=== PATIENT | male | born 1955 | race Caucasian/White ===

== ENCOUNTER 2023-01-07 02:22 | Emergency (ER) | payer OTHER, SELFPAY ==
[2023-01-07 02:41] VITALS: BP 152/84; PULSE 89; RESP 22; TEMP 36.3; O2SAT 93; BMI 21.5
--- NOTE | 2023-01-07 03:21 | ED_ITS ---
HPI - Male Genitourinary General Chief complaint: Urogenital Problems, Male Stated complaint: Wants catheter removed Time Seen by Provider: 01/07/23 02:53 History of Present Illness HPI Narrative: Pt is a 67 year old gentleman who drives over from [place] this morning stating that he would like to have his rankin catheter removed. Pt has a history of urinary obstruction for which he has self catheterized for years. Pt states that this catheter was put in several weeks ago at [facility] and that they refuse to remove it. He states that no urine is going into the bag and that he is emptying his bladder around the catheter. Pt has had no signso of infection such as dysuria, fevers, chills or hematuria. He states that he feels well, doesn't want any further evaluation and would very much like to have his catheter removed. VIKTORIYA. Related Data Allergies Allergy/AdvReac Type Severity Reaction Status Date / Time No Known Allergies Allergy Verified 01/07/23 02:52 Review of Systems Status of ROS: Reports: 10 or more systems reviewed and unremarkable except as noted in History and below and 6 or more systems reviewed and unremarkable exc ept as noted in History and below Exam Narrative: Exam Narrative: EXAM GENERAL: Patient appears comfortable and well. EYES: No scleral icterus. LYMPH: No supraclavicular or cervical lymphadenopathy. SKIN: Visible skin seen during exam normal or with benign process only. EXT: No dependent lower extremity pedal edema. HEART: Regular rate and rhythm with no murmurs, rubs, or gallops. LUNGS: Clear to auscultation bilaterally with no crackles or wheezes. ABD: Soft, non tender, non distended. PSYCH: Good eye contact, speech is not pressured. Const: Vital Signs, click to edit/add: Vital Signs - 24 hr 01/07/23 02:41 Temperature 97.3 F L Pulse Rate [Pulse Oximeter] 89 Respiratory Rate 22 Blood Pressure [Le ft Upper Arm] 152/84 H Pulse Oximetry 93 Oxygen Delivery Me thod Room Air Course Course Hospital Course: Pt seen and examined. Vital Signs Vital signs: Initial Vital Signs Temperature 97.3 F L 01/07/23 02:41 Temperature Source Temporal Artery Scan 01/07/23 02:41 Pulse Rate 89 01/07/23 02:41 Pulse Strength 3+ Normal 01/07/23 02:41 Respiratory Rate 22 01/07/23 02:41 Blood Pressure 152/84 H 01/07/23 02:41 Blood Pressure Mean 106 01/07/23 02:41 Blood Pressure Position Sitting 01/07/23 02:41 Pulse Oximetry 93 01/07/23 02:41 Oxygen Delivery Method 01/07/23 02:41 Vital Signs Temperature 97.3 F L 01/07/23 02:41 Pulse Rate 89 01/07/23 02:41 Respiratory Rate 22 01/07/23 02:41 Blood Pressure 152/84 H 01/07/23 02:41 Pulse Oximetry 93 01/07/23 02:41 Oxygen Delivery Method 01/07/23 02:41 Temperature 97.3 F L 01/07/23 02:41 Pulse Rate 89 01/07/23 02:41 Respiratory Rate 22 01/07/23 02:41 Blood Pressure 152/84 H 01/07/23 02:41 Pulse Oximetry 93 01/07/23 02:41 Oxygen Delivery Method 01/07/23 02:41 MDM - Male Genitourinary MDM Narrative Medical decision making narrative: Pt presents with urination around the outside of his rankin catheter. Pt is not interested in discussing his urinary history, home medications or chronic health conditions. He just wants his catheter out and understands the risk of doing so. I am hesitant to remove the catheter as we do not have access to previous records. However, the catheter is clearly not working as he is urinating around it. The catheter was removed and he refused a new catheter. He will follow up if problems develop and will follow up with his PCP this coming week as well. Differential Diagnosis Differential diagnosis: Likely urinary tract infection, urethritis, prostatitis, acute retention of urine and inguinal hernia Discharge Plan Discharge Clinical Impression: Obstruction of urinary tract Patient Disposition: Home, Self-Care Condition: Stable Instructions: Enlarged Prostate (BPH) (ED) Additional Instructions: Return if problems with bladder emptying develop Follow up with your doctor this coming week. Activity Level: No Restrictions Discharge Diet: Regular Stand Alone Forms: [employer] Info Instructions
--- NOTE | 2023-01-07 03:40 | ED.NURSE ---
Catheter removed without complication. Patient provided with new supplies for straight cathing at home. He states he has used the same kit since 2019.
== END 2023-01-07 03:48 | disposition home or self-care (01) ==
LOC: ED 03:47
PROVIDERS: Emergency Provider Internal Medicine; PCP Surgery
DX: T83.091A Other mechanical complication of indwelling urethral catheter, initial encounter (principal)
CPT/HCPCS: 99282; 99283

== ENCOUNTER 2023-11-21 02:39 | Emergency (ER) | payer OTHER, SELFPAY ==
[2023-11-21 02:46] VITALS: BP 134/84; PULSE 84; PULSE 98; RESP 22; TEMP 37; BMI 35.0
--- NOTE | 2023-11-21 03:03 | ED_ITS ---
HPI - Male Genitourinary General Date Seen: 11/21/23 Chief complaint: Urogenital Problems, Male Stated complaint: Bladder problems Time Seen by Provider: 11/21/23 02:41 Source: patient Mode of arrival: ambulatory Limitations: no limitations History of Present Illness HPI Narrative: Patient is a 68-year-old male presenting to the emergency department for difficulty urinating and blood in his urine. He states he has been dealing with this on and off for 5 years now. He states they found for possible cancer few years ago but he refused a biopsy so has never formally diagnosed. Since then he will have intermittent issues with blood in his urine and states he will get prescribed antibiotics in it will clear up. He has been self cathing over the past couple days. States he does this whenever the symptoms flare up. He last had do it 1 year ago. He states at that time he was supposed sick keep a Herrera and but pulled it out on its own because he did not know there was a balloon on the and. States he received a self cath kits from [facility]. States he has some mild suprapubic pain that only started after the repeated self catheterization. States he is having some issues the self cathing because they a clotting up with blood. Denies fevers, chills, chest pain, shortness of breath, lightheadedness, dizziness, weakness, numbness. States his only issue at this time is the blood clots in his urine. Related Data Previous Rx's Medication Instructions Recorded cefpodoxime 200 mg tablet 200 mg PO BID #28 tabs 11/21/23 Allergies Allergy/AdvReac Type Severity Reaction Status Date / Time No Known Allergies Allergy Verified 01/07/23 02:52 Review of Systems Status of ROS: Reports: 10 or more systems reviewed and unremarkable except as noted in History and below PFSH PFS Social History Smoking Status: Current every day smoker What tobacco products do you use: cigarettes Second hand tobacco smoke exposure: No How often do you have a drink containing alcohol: never How often do you have six or more drinks on one occasion: Never AUDIT-C Alcohol total score: 0 Non-prescribed substance use: denies use Exam Narrative: Exam Narrative: Const: Well-nourished, Well-developed, in no distress Eyes: PERRL, no conjunctival injection, and symmetrical lids HENT: Atraumatic external nose and ears. Moist mucous membranes. Neck: Symmetric, trachea midline, No thyromegaly. CVS: RRR, No murmurs or gallops. Peripheral pulses 2+ and equal in all extremities RESP: Unlabored respiratory effort. Clear to auscultation bilaterally. GI: Nontender/Nondistended, No rebound or guarding. MSK:Extremities w/o deformity, Normal Active ROM Skin: Warm, Dry. No rashes or lesions. Neuro: Normal Muscle tone, No focal neurological deficits. Psych: Awake, Alert, & Oriented x3. Appropriate mood and affect. Const: Vital Signs, click to edit/add: Vital Signs - 24 hr 11/21/23 02:46 11/21/23 03:45 Temperature 98.6 F Pulse Rate [Femora l] 84 Pulse Rate [Pulse Oximeter] 98 Respiratory Rate 22 20 Blood Pressure [Ri ght Upper Arm] 134/84 153/84 H Oxygen Delivery Me thod Room Air Room Air Course Vital Signs Vital signs: Initial Vital Signs Temperature 98.6 F 11/21/23 02:46 Temperature Source Temporal Artery Scan 11/21/23 02:46 Pulse Rate 98 11/21/23 02:46 Respiratory Rate 22 11/21/23 02:46 Blood Pressure 134/84 11/21/23 02:46 Blood Pressure Mean 100 11/21/23 02:46 Blood Pressure Position Sitting 11/21/23 02:46 Oxygen Delivery Method Room Air 11/21/23 02:46 Vital Signs Temperature 98.6 F 11/21/23 02:46 Pulse Rate 98 11/21/23 02:46 Respiratory Rate 22 11/21/23 02:46 Blood Pressure 134/84 11/21/23 02:46 Oxygen Delivery Method Room Air 11/21/23 02:46 Temperature 98.6 F 11/21/23 02:46 Pulse Rate 98 11/21/23 02:46 Respiratory Rate 20 11/21/23 03:45 Blood Pressure 153/84 H 11/21/23 03:45 Oxygen Delivery Method Room Air 11/21/23 03:45 Medications Administered Medications: Discontinued Medications Generic Name Dose Route Start Last Admin Trade Name Freq PRN Reason Stop Dose Admin Cefpodoxime Proxetil 200 mg 11/21/23 04:48 11/21/23 05:02 Cefpodoxime Proxetil 200 Mg Tablet PO 11/21/23 04:49 200 mg ONCE ONE Administration MDM - Male Genitourinary MDM Narrative Medical decision making narrative: Patient is a 68-year-old male presenting for blood clots in his urine. He does possibly have some type of bladder cancer but he never got the biopsy. We will cath him here to see how much blood in urine there is and to see if there is a UTI. Will check a CBC and BMP to look for any signs of infection or kidney dysfunction. Herrera was placed and blood did return. We did have to force saline through a few times to unclog it. Because still continued to appear to be a large amount of blood and CBI was ordered. This was done after his CT scan but were unable to get the CBI catheter in. CT scan showed acute cystitis which is consistent with ease urinalysis. Some incidental kidney and pulmonary lesions were seen and he was informed to follow-up with them. CBC and BMP showed no concerning findings. Coags were non concerning. At this time patient is otherwise doing well he states this has happened to him several times in the past and antibiotics always clear up the bleeding. He is hemodynamically stable and I do believe he needs hospitalization at this time. Spoke to him about placing a Herrera catheter again so that he can have better drainage but he does not want to go home with 1. He states he will self catheterization as needed and take the antibiotics as directed. States he will return if symptoms worsen. At this point patient will be discharged home. Lab Data Labs: Lab Results 11/21/23 Range/Units 03:30 WBC 10.43 (4.50-11.00) K/uL RBC 4.75 (4.30-5.90) m/uL Hgb 14.2 (13.5-17.5) gm/dL Hct 42.1 (37.0-53.0) % MCV 89 (80-100) fL MCH 30 (26-34) pg MCHC 34 (32-36) gm/dL RDW Coeff of Syed 13.0 (11.5-15.5) % Plt Count 212 (140-440) K/uL Neut % (Auto) 52.4 (42.0-72.0) % Lymph % (Auto) 35.5 (20-44) % [place] % (Auto) 9.9 (0.0-11.0) % Eos % (Auto) 1.7 (0.0-7.0) % Baso % (Auto) 0.3 (0.0-3.0) % Neut # (Auto) 5.47 (1.7-7.0) K/uL Lymph # (Auto) 3.70 H (0.90-2.90) K/uL O[place]ley # (Auto) 1.00 H (0.00-0.90) K/UL Eos # (Auto) 0.18 (0.00-0.50) K/uL Baso # (Auto) 0.03 (0.00-0.30) K/uL Abs Immat Gran (auto) 0.02 (0.00-0.30) K/uL Imm/Tot Granulo (auto) 0.2 % INR 0.94 (0.91-1.10) APTT 34 H (23-33) Seconds Sodium 139 (135-149) mmol/L Potassium 3.6 (3.6-5.1) mmol/L Chloride 108 (96-114) mmol/L Carbon Dioxide 21 (20-32) mmol/L Anion Gap 10 (7-15) mEq/L BUN 17 (7-30) mg/dL Creatinine 0.8 (0.5-1.5) mg/dL Estimated Creat Clear 66.50 Estimated GFR 95 ml/min Glucose 187 H (60-115) mg/dL Calcium 8.6 (8.4-10.6) mg/dL Urine Color Red A (Yellow) Urine Appearance Cloudy A (Clear) Urine pH >= 9.0 H (5.0-8.5) Ur Specific [place] <= 1.005 (1.000-1.030) Urine Protein 3+ A (Negative) Urine Glucose (UA) Trace A (Negative) Urine Ketones 3+ A (Negative) Urine Blood 3+ A (Negative) Urine Nitrite Negative (Negative) Urine Bilirubin 3+ A (Negative) Urine Urobilinogen >=8.0 A (0.2-1.0) Ur Leukocyte Esterase 3+ A (Negative) Urine RBC >100 A (0-2) Urine WBC 5-10 A (0-5) Ur Squamous Epith Cells Few (None-Few) Urine Bacteria Moderate A (None) Imaging Data CT scan abdomen and pelvis: Radiologist's impression: 1. Indeterminate heterogenous left midpole renal lesion, measuring up to 2.2 cm. Recommend nonemergent contrast-enhanced CT/MRI renal mass protocol to further evaluate. 2. Bladder is decompressed with Herrera catheter with the bladder wall demonstrating wall thickening and adjacent inflammation. Findings concerning for acute cystitis. Recommend correlation with urinalysis. 3. Colonic diverticulosis without evidence of acute diverticulitis. 4. Hepatic steatosis 5. Right middle lobe and left lower lobe subpleural pulmonary nodules, measuring approximately 5 mm. The left lower lobe pulmonary nodule is incompletely included in the field of view. Recommend follow-up per Fleischner society guidelines. Discharge Plan Discharge Clinical Impression: Acute UTI Hematuria Qualifiers: Hematuria type: gross Qualified Code(s): R31.0 - Gross hematuria Patient Disposition: Home, Self-Care Condition: Stable Instructions: Urinary Tract Infection in Men (ED) Additional Instructions: I recommend follow-up with a urologist within next week or 2. At a minimum follow-up with your primary care provider. You can continue to self cath the home as needed. Return to the emergency department for new or worsening symptoms. Take antibiotics as directed Incidental kidney and lung lesions were seen on the CT scan. It is recommended he follow-up your primary care provider for these in a non emergent fashion. Prescriptions: New cefpodoxime 200 mg tablet 200 mg PO BID Qty: 28 0RF Rx Instructions: must administer with a meal/food Follow Up/Referrals: Daniel Jc MD [Primary Care Provider] - Stand Alone Forms: [employer] Info Instructions
--- NOTE | 2023-11-21 03:24 | CRLHL7_ITS ---
For Patients: As a result of the Century Cures Act, medical imaging exams and procedure reports are released immediately into your electronic medical record. You may view this report before your referring provider. If you have questions, please contact your health care provider. INDICATION: gross hematuria TECHNIQUE: CT abdomen and pelvis with 103 cc Isovue 370 IV contrast. COMPARISON: None. FINDINGS: Hepatic steatosis. Gallbladder and biliary tree are normal. The spleen, adrenal glands and pancreas are within normal limits. Heterogenous left midpole renal lesion, measuring 1.9 x 2.2 x 1.7 cm. Left upper pole exophytic renal cyst measuring 1.7 cm. No hydronephrosis. Bladder is decompressed with Herrera catheter with the bladder wall demonstrating wall thickening and adjacent inflammation. No evidence of bowel obstruction. Colonic diverticulosis without evidence of acute diverticulitis. Unremarkable appendix. No significant free fluid and no free air. Abdominal aorta normal caliber with moderate aortoiliac atherosclerosis. Small fat containing umbilical hernia. Pelvic organs are unremarkable. Solid right middle lobe pulmonary nodule, measuring 5 mm. Additional partially included in the field of view is a 5 mm left lung base pulmonary nodule. There is also calcified granulomata left lung base. Chronic bilateral L5 pars defects. Mild multilevel degenerative spondylosis. IMPRESSION: 1. Indeterminate heterogenous left midpole renal lesion, measuring up to 2.2 cm. Recommend nonemergent contrast-enhanced CT/MRI renal mass protocol to further evaluate. 2. Bladder is decompressed with Herrera catheter with the bladder wall demonstrating wall thickening and adjacent inflammation. Findings concerning for acute cystitis. Recommend correlation with urinalysis. 3. Colonic diverticulosis without evidence of acute diverticulitis. 4. Hepatic steatosis 5. Right middle lobe and left lower lobe subpleural pulmonary nodules, measuring approximately 5 mm. The left lower lobe pulmonary nodule is incompletely included in the field of view. Recommend follow-up per Fleischner society guidelines. SOCIETY GUIDELINES - SOLID NODULES: SINGLE LOW RISK - nodule less than 6 mm: No routine follow-up. - nodule 6-8 mm: CT at 6-12 months, then consider CT at 18-24 months. - nodule greater than 8 mm: Consider CT at 3 months, PET/CT or tissue sampling. SINGLE HIGH RISK - nodule less than 6 mm: Optional CT at 12 months. - nodule 6-8 mm: CT at 6-12 months, then CT at 18-24 months. - nodule greater than 8 mm: Consider CT at 3 months, PET/CT or tissue sampling. MULTIPLE LOW RISK - nodule less than 6 mm: No routine follow-up. - nodule 6-8 mm: CT at 3-6 months, then consider CT at 18-24 months. - nodule greater than 8 mm: CT at 3-6 months, then consider CT at 18-24 months. MULTIPLE HIGH RISK - nodule less than 6 mm: Optional CT at 12 months. - nodule 6-8 mm: CT at 3-6 months, then at 18-24 months. - nodule greater than 8 mm: CT at 3-6 months, then at 18-24 months. Please note that all CT scans at this facility use dose modulation, iterative reconstruction, and/or weight-based dosing when appropriate to reduce radiation dose to as low as reasonably achievable. Dictated by Linden Erickson MD @ 11/21/2023 4:41:44 AM (Electronically Signed)
[2023-11-21 03:37] LABS: Basophils Absolute Auto 0.03 K/uL (0.00-0.30); Basophils Percent Auto 0.3 % (0.0-3.0); Eosinophils Absolute Auto 0.18 K/uL (0.00-0.50); Eosinophils Percent Auto 1.7 % (0.0-7.0); Hematocrit 42.1 % (37.0-53.0); Hemoglobin* 14.2 gm/dL (13.5-17.5); Immature Granulocytes Abs Auto 0.02 K/uL (0.00-0.30); Immature Granulocytes Pct Auto 0.2 %; Lymphocytes Percent Auto 35.5 % (20-44); Mean Corpuscular HGB Conc 34 gm/dL (32-36); Mean Corpuscular Hemoglobin 30 pg (26-34); Mean Corpuscular Volume 89 fL (80-100); Monocytes Percent Auto 9.9 % (0.0-11.0); Neutrophils Absolute Auto 5.47 K/uL (1.7-7.0); Neutrophils Percent Auto 52.4 % (42.0-72.0); Platelet Count* 212 K/uL (140-440); Red Blood Count 4.75 m/uL (4.30-5.90); White Blood Count* 10.43 K/uL (4.50-11.00)
[2023-11-21 03:39] LABS: Slide Review Reflex No
--- NOTE | 2023-11-21 03:42 | PC.NURSE ---
0330 urojet used prior to insertion of coude cath-met resistance at prostate but without much diff. 100 cc of sang into bag but large amounts of pink tinged urine spirting out end of penis. at BS to see. IV started and labs sent as ordered. Pt states he has been self cathing for a couple days now. Usually they give me an anitbiotic and within minutes I feel a lot better.
[2023-11-21 03:45] VITALS: BP 153/84; RESP 20
[2023-11-21 03:45] LABS: Appearance Urine Cloudy (Clear); Bilirubin Urine 3+ (Negative); Blood Urine 3+ (Negative); Color Urine Red (Yellow); Glucose Urine Trace (Negative); Ketones Urine 3+ (Negative); Leukocyte Esterase Urine 3+ (Negative); Nitrite Urine Negative (Negative); Protein Urine 3+ (Negative); Specific Gravity Urine <= 1.005 (1.000-1.030); Urobilinogen Urine >=8.0 (0.2-1.0)
[2023-11-21 03:48] LABS: Bacteria Urine Moderate; RBC Urine >100 (0-2); Squamous Epithelial Cell Urine Few (None-Few); pH Urine >= 9.0 (5.0-8.5)
[2023-11-21 03:50] LABS: Chloride* 108 mmol/L (96-114); Sodium* 139 mmol/L (135-149)
[2023-11-21 03:51] LABS: Potassium* 3.6 mmol/L (3.6-5.1)
[2023-11-21 03:53] LABS: Creatinine* 0.8 mg/dL (0.5-1.5); Estimated Glomerular Filt Rate 95 ml/min; INR 0.94 (0.91-1.10); Prothrombin Time 13.1 Seconds
[2023-11-21 03:54] LABS: Anion Gap 10 mEq/L (7-15); Blood Urea Nitrogen* 17 mg/dL (7-30); Calcium* 8.6 mg/dL (8.4-10.6); Carbon Dioxide* 21 mmol/L (20-32); Glucose* 187 mg/dL (60-115); Partial Thromboplastin Time* 34 Seconds (23-33)
--- NOTE | 2023-11-21 04:22 | PC.NURSE ---
Return from CT-moved to room 5 secondary to a larger room-plan for CBI
--- NOTE | 2023-11-21 04:41 | PC.NURSE ---
Previous catheter D/C with an atempt to place a 3way CBI rankin. Unsuccessfully. Pt statoin
--- NOTE | 2023-11-21 04:43 | PC.NURSE ---
at when attempted to palce a
--- NOTE | 2023-11-21 04:44 | PC.NURSE ---
at during rankin attempt for CBI attempt. Unsuccessful.
[2023-11-21] MEDS: CEFPODOXIME PROXETIL 200 MG TABLET PO (05:02)
--- OUTSIDE RECORDS SUMMARY | 2023-11-21 05:18 | XMS_ITS | Data Portability ---
Author Name Unknown Address [address] [place] [address] Phone [phone] Organization [facility] Address [address] [facility] [place] [address] Assessment Encounter Date Assessment Date Assessment LastModified by Organization Details LastModified Time 07/01/2020 07/01/2020 Multiple chronic conditions that are stable or improving. Recommend RTC in 3-6 months. Meds refilled. Not available 07/01/2020 11:02:39 12/23/2020 12/23/2020 Advised patient that, due to his insurance, I recommend that he follow up with [facility] internal medicine for his primary care. They have been trying to reach him (per [facility] records) to do a follow up. We made a deal that I will refill his meds x 3 months if he does a follow up with them. He plans to call to schedule today. I recommended repeat labs. We discussed the importance of diabetes control on maintaining his health. Patient plans to work on weight loss. Plans to go camping in [place] soon. Advised patient that, though he does not want to pursue treatment for probably cancer diagnosis at this point, he can always change his mind based on how he is feeling and the information that he receives. Patient feels that he has received all pertinent information and is choosing not to pursue treatment. Not available 12/23/2020 10:41:33 Plan of Treatment Reminders Order Date Submit Date Provider Last Modified By Organization Details Last Modified Time Details Appointments None recorded. Lab None recorded. Referral care coordinati on referral 2019 020 [email or web address] Not available 0 15:24:08 Procedures None recorded. Surgeries None recorded. Imaging None recorded. Medication Orders omeprazole 20 mg capsule,de layed release [facility] [place], [address], [place], [address], 15:17:56 glipizide ER 5 mg tablet, extended release 24 hr 2020 [facility] [place], [address], [place], [address], 10:37:11 losartan 50 mg tablet 2020 [facility] [place], [address], [place], [address], 10:35:25 metoprolol succinate ER 100 mg tablet,ext ended release 24 hr 2020 [facility] [place], [address], [place], [address], 15:17:56 atorvastat in 40 mg tablet 2020 [facility] [place], [address], [place], [address], 15:07:00 doxazosin 4 mg tablet 2020 [facility] [place], [address], [place], [address], 15:11:04 atorvastat in 40 mg tablet 2019 [facility] [place], [address], [place], [address], 0 10:40:47 Fish Oil 300 mg-1,000 mg capsule 2019 [facility] [place], [address], [place], [address], 0 10:40:49 omeprazole 20 mg capsule,de layed release 2019 [facility] [place], [address], [place], [address], 0 10:40:50 losartan 50 mg tablet 2019 [facility] [place], [address], [place], [address], 0 10:40:47 metoprolol succinate ER 100 mg tablet,ext ended release 24 hr 2019 [facility] [place], [address], [place], [address], 0 10:40:50 glipizide ER 5 mg tablet, extended release 24 hr 2019 INTERFACE [facility] [place], [address], [place], [address], 0 10:40:50 doxazosin 2 mg tablet 2019 INTERFACE [facility] [place], [address], [place], [address], 0 10:40:51 Patient TargetsNo targets recorded. Patient InstructionsNo instructions recorded. Reason for Referral Care Coordination Referral f or Essential hypertension Home BP monitor and CHW follow up if possible/if patient is ok with it. Referring Physician: [facility]arez [facility], Encounter Date: 07/01/2020 Care Coordination Referral f or [place] hematuria Refer to [facility] Dr. Mendoza Referring Physician: M[facility], Encounter Date: 08/26/2020 Internal Medicine Referral f or [place] hematuria Internal medicine referral due to multiple chronic uncontrolled conditions Gross hematuria with clots x 10 days Referring Physician: Makenzie Juarez, Family Medicine, Encounter Date: 08/26/2020 Results Created Date Observation Date Name Description Value Unit Range Abnormal Flag LastModifiedBy Organization Detail LastModifiedTime 09/07/2020 HbA1c (hemo globi n A1c), blood HGB A1C 11.7 Not Available [facility] [address] [place] [address] [place], [address], 06/19/2020 10:48:05 06/17/20 20 06/17/2020 CBC w/ diff WBC 7.7 Not Available [facility] [address] [place], [address], 06/19/2020 10:48:05 06/17/20 20 06/17/2020 CBC w/ diff HGB 15.5 Not Available [facility] [address] [place] [address] [place], [address], 06/19/2020 10:48:05 06/17/20 20 06/17/2020 CBC w/ diff platelet count 142 Not Available [place] [facility] [address] [place] [address] [place], [address], 06/19/2020 10:48:05 06/17/20 20 06/17/2020 CMP, serum or plasm a creatinine 0.94 Not Available [facility] [address] [place] [address] [place], [address], 06/19/2020 10:48:05 06/17/20 20 06/17/2020 CMP, serum or plasm a ALT 37 Not Available [facility] [address] [place] [address] [place], [address], 06/19/2020 10:48:05 06/17/20 20 06/17/2020 micro album in, urine microalbumin 64.9 Not Available [facility] [address] [place] [address] [place], [address], 06/19/2020 10:48:05 Result Notes None recorded. Medical Equipment None Reported. Allergies No known drug allergies Medications Name Sig Start Date Stop Date Status Note LastModified by Organization Details LastModified Time losartan 50 mg tablet active Not Available Not Available No t Available atorvastati n 40 mg tablet active Not Available Not Available Not Available metoprolol succinate ER 100 mg tablet,exte nded release 24 hr active Not Available Not Available Not Available glipizide ER 5 mg tablet, extended release 24 hr Take 1 tablet(s) every day by oral route. active Not Available Not Available No t Available doxazosin 8 mg tablet 12/23 completed Not Available Not Available Not Available glipizide ER 2.5 mg tablet, extended release 24 hr take 1 tablet by oral route every day with breakfast 11/27 completed Not Available Not Available Not Available omeprazole 20 mg capsule,del ayed release active Not Available Not Available Not Available doxazosin 4 mg tablet Take 1 tablet(s) every day by oral route. active Not Available Not Available No t Available clotrimazol e 1 % topical cream apply by topical route 2 times every day to the affected and surroundi ng areas of skin in the morning and evening 02/18 completed Not Available Not Available Not Available doxazosin 2 mg tablet take 1 tablet by oral route every day 11/20 completed Not Available Not Available Not Available Ciprodex 0.3 %-0.1 % ear drops,suspe nsion SHAKE LIQUID AND INSTILL 4 DROPS IN LEFT EAR TWICE DAILY active Not Available Not Available No t Available Fish Oil 300 mg-1,000 mg capsule Take 1 capsule(s ) every day by oral route. active Not Available Not Available No t Available Fish Oil 300 mg-1,000 mg capsule,del ayed release active Not Available Not Available Not Available Fish Oil 1,000 mg (120 mg-180 mg) capsule 2 capsules daily 11/27 completed Not Available Not Available Not Available Fluad Quad (6 5yr up)(PF) 60 mcg (15 mcg x 4)/0.5mL IM syringe ADM 0.5ML IM UTD active Not Available Not Available No t Available Moderna COVID-19 (12 yr up) Vaccine (PF) 100 mcg/0.5 mL IM susp (EUA) ADMINISTE R 0.5ML IN THE MUSCLE DIRECTED active Not Available Not Available No t Available Vitals Date Recorded Systolic blood pressure Diastolic blood pressure Provider Name and Address Organization Details Last Updated DateTime 11/20/2019 138 mm[Hg] 85 mm[Hg] Not Available [facility] 0 06/01/2020 12:58:07 Social History None recorded. Functional Status None recorded. Mental Status None recorded. Family History Nothing Reported. Medical History No medical history recorded. Past Encounters Encounter ID Performer Location Encounter Start Date Encounter Closed Date Diagnosis/Indication [id number] Makenzie Juarez NP [facility] [address] [place] [id number] 06/17/2020 11:50:23 06/17/2020 16:05:28 [id number] [facility] [address] [place] [id number] 07/01/2020 09:54:42 07/01/2020 11:09:11 Essential hypertension Type 2 diabetes mellitus without complication Benign prostatic hyperplasia Dyslipidemia Gastroesophageal reflux disease [id number] Makenzie Juraez NP [facility] [address] [place] [phone] 12/23/2020 09:55:46 12/23/2020 10:54:38 Essential hypertension Type 2 diabetes mellitus without complication Benign prostatic hyperplasia Hyperlipidemia Gastroesophageal reflux disease Health Concerns Section Related Observation LastModified by Organization Detai ls LastModified Time None Recorded Concern Status LastModified by Organization Details LastModified Time None Recorded Advance Directives Directive None Recorded Payers Encounter Date Sequence Insurance Name Policy Number Policy Rivera Covered Member ID Rivera Member ID Guarantor Name 12/23/2020 1 [employer] - DOS PRIOR TO 2021 (MEDICAID REPLACEMENT - HMO) RICHAR Velasquez [id number] Norris Velasquez 07/01/2020 1 [employer] - DOS PRIOR TO 2021 (MEDICAID REPLACEMENT - HMO) RICHAR Velasquez [id number] Norris Velasquez 06/17/2020 1 [employer] - DOS PRIOR TO 2021 (MEDICAID REPLACEMENT - HMO) [facility] Velasquez [id number] Norris Velasquez Notes Date Note Type Note Provider Name and Address Organization Details Recorded Time 07/01/2020 text/html HPI Notes: 65 y. o. M with hx of DM2, HLD, BPH, HTN, and GERD, evaluated via [facility] for follow up. Labs done 06/17/20. 1. DM2: A1c 11.7 (down from 12.7% 11/2019), reports urinary frequency that is stable x many years (likely due to BPH), denies vision changes, neuropathy, hematuria. Microalbumin elevated, but not surprisingly. Creatinine/eGFR/BUN normal. Patient has cut down significantly on sugar. Reports that nerve pain in his foot has gone away. Taking Glipizide as directed. Recently seen at [facility] for glasses and eye exam. 2. HTN: Does not have home BP cuff. Has taken Losartan 100mg and Metoprolol succinate 100mg ER for a long time now. Advised patient to have BP checked in pharmacy. Will refer for CHW visit and home BP cuff if possible. Denies dizziness, headache, vision changes. 3. Dyslipidemia: lipid panel much improved. Takes Atorvastatin and fish oil as prescribed. Has cut down on sugar consumption. 4. BPH: Reports that he has experimented with taking Doxazosin 2mg twice daily and this allows him to sleep through the night without getting up to urinate. Would like to keep doing this. Denies any acute change in urinary frequency, dysuria, hematuria. Makenzie Juarez, [employer] [address] [place], [address], [facility] 07/01/2020 11:11:59 12/23/2020 text/html HPI Notes: 65 y. o. M with hx of uncontrolled DM2, HLD, BPH, HTN, and GERD, evaluated via [facility] Last seen 08/2020, at which time he was referred to urology due to gross hematuria with clots and to [facility] internal medicine due to the complexity of his case and because he has insurance. 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 They have been trying to reach out to him for DM2 follow up. Labs reviewed from 09/2020 - BMP, CBC, and COVID-19 test all normal except for glucose of 350 Today, patient reports feeling great. Denies any symptoms today. He does not want to do anything about his prostate cancer (not confirmed by biopsy). Patient declining any intervention. Hesitant to go back to [facility] internal medicine because he feels pressured to have surgery. He reports that he is eating better, not losing weight, but plans to. Makenzie Juarez, [employer] [address] [place], [address], [facility] 12/23/2020 10:44:52
--- NOTE | 2023-11-21 05:53 | PC.NURSE ---
0530 pt received oral antibiotic before D/C. Pt able to call for ride home. Pads and chux provided. Ambulate out wit stable gait.
--- NOTE | 2023-11-21 14:41 | ED.NURSE ---
[facility] in [place] called to state that patients insurance does not cover cefpodoxime and requested a different antibiotic to be prescribe. Reviewed patients case with Dr. Rivera. He felt patient did not need to be treated with an anitbiotic at this time and we can wait for culture results. Pharmacy was notified of this. Attempted to call patient with this information as well but he did not answer and a message was left.
== END 2023-11-21 06:34 | disposition home or self-care (01) ==
LOC: ED 05:16
PROVIDERS: Emergency Provider Student in an Organized Health Care Education/Training Program; PCP Surgery
DX: N39.0 Urinary tract infection, site not specified (principal); R31.0 Gross hematuria
CPT/HCPCS: 36415; 74177; 80048; 81001; 85025; 85610; 85730; 87086; 99283; 99284; A9270; Q9967

== ENCOUNTER 2024-11-22 19:06 | Emergency (ER) | payer OTHER, SELFPAY ==
--- OUTSIDE RECORDS SUMMARY | 2024-11-22 19:08 | XMS_ITS | Clinical Summary ---
Author Organization [facility] Address [place], [place] [address] Care Team Providers Care Mold Sander Name Role Phone Daniel Jc MD Primary Care Provider [phone] [facility], [place] Unavailable Allergies Active Allergy Reactions Criticality Noted Date Comments Codeine Other - Describe In Comment Field Comment: GI problems, Description: Metformin GI Upset 04/30/2021 Unlisted Allergen (Include Detail In Comments) GI Upset 04/16/2010 Medications blood sugar diagnostic (Contour Next Test Strips) stripIndications: Type 2 diabetes mellitus with diabetic polyneuropathy, without long-term current use of insulin (HC) USE TO TEST 4 TIMES DAILY 400 Each 3 022 Active aspirin chewable 81 mg chewable tabletIndications :ST elevation myocardial infarction (STEMI), unspecified artery (HC) Take 1 Tablet (81 mg) by mouth or nasogastric tube once daily. 90 Tablet 023 Active amLODIPine (NORVASC) 5 mg tabletIndications :Essential hypertension Take 1 Tablet (5 mg) by mouth once daily. 90 Tablet 3 024 Active gabapentin (NEURONTIN) 300 mg capsuleIndication s:Type 2 diabetes mellitus with diabetic polyneuropathy, without long-term current use of insulin (HC) Take 2 Capsules (600 mg) by mouth at bedtime. 180 Capsule 3 024 Active glipiZIDE extended-release (GLUCOTROL XL) 5 mg Extended-Release tabletIndications :Type 2 diabetes mellitus with diabetic polyneuropathy, without long-term current use of insulin (HC) Take 1 Tablet (5 mg) by mouth once daily before a meal. 90 Tablet 3 03/25/2 024 Active losartan (COZAAR) 100 mg tabletIndications :HTN (hypertension) Take 1 Tablet (100 mg) by mouth once daily. 90 Tablet Active Insulin [place], Disposable, (Pen Needle) 32 gauge x /32Indications: Type 2 diabetes mellitus with diabetic polyneuropathy, without long-term current use of insulin (HC) As directed. Remove the 2 covers on the insulin pen needle before administering insulin dose. 100 Each Active metoprolol succinate (TOPROL XL) 100 mg Sustained-Release tabletIndications :HTN (hypertension) Take 1 Tablet (100 mg) by mouth once daily. 90 Tablet Active omeprazole (PRILOSEC) 20 mg Delayed-Release capsuleIndication s:Chronic GERD Take 1 Capsule (20 mg) by mouth once daily before a meal. 90 Capsule Active rosuvastatin (CRESTOR) 40 mg tabletIndications :Hyperlipidemia, unspecified hyperlipidemia type Take 1 Tablet (40 mg) by mouth at bedtime. 90 Tablet Active tamsulosin (FLOMAX) 0.4 mg capsuleIndication s:Urinary retention Take 2 Capsules (0.8 mg) by mouth once daily after a meal. 180 Capsule Active insulin glargine, U-100, (Lantus Solostar U-100 Insulin) 100 unit/mL (3 mL) penIndications:Ty pe 2 diabetes mellitus with diabetic polyneuropathy, without long-term current use of insulin (HC) Inject 52 units subcutaneous before bedtime. 45 mL 2 Active triamcinolone (ARISTOCORT; KENALOG) 0.1 % creamIndications: Inverse psoriasis APPLY TOPICALLY TO AFFECTED AREA(S) TWO TIMES DAILY. USE TWICE DAILY ON AFFECTED AREA FOR UP TO 2 WEEKS STRAIGHT, THEN STOP 80 g 1 025 Active triamcinolone (ARISTOCORT; KENALOG) 0.1 % creamIndications: Inverse psoriasis APPLY TOPICALLY TO AFFECTED AREA(S) TWO TIMES DAILY. USE TWICE DAILY ON AFFECTED AREA FOR UP TO 2 WEEKS STRAIGHT, THEN STOP 80 g 1 024 2024 Discontinued Active Problems Problem Noted Date Diagnosed Date STEMI (ST elevation myocardial infarction) 02/06 Type 2 diabetes mellitus 02/06/2023 Malignant neoplasm of urinary bladder 03/29/2021 Gastroesophageal reflux disease without esophagi tis 06/05/2015 Chronic pain 06/05/2015 Unspecified essential hypertension 02/25/2011 Impotence of organic origin 12/28/2010 Hyperlipidemia BPH (benign prostatic hyperplasia) Resolved Problems Problem Noted Date Diagnosed Date Resolved Date Hematuria 01/05/2023 02/06/2023 UTI (urinary tract infection) 01/05/2023 02/06/2023 Encounters Date Type Department Care Team Description 11/15/2024 Refill [facility] [address] [place] [address] Daniel Jc MD Refill Request (Triamcinolone) 11/04/2024 Telephone [facility] [address] [place] [address] Daniel Jc MD Appointment 09/19/2024 Nurse Triage [facility] [address] [place] [address] Daniel Jc MD Derm Problem from Last 3 Months Immunizations Name Administration Dates Next Due Anthrax Vaccine 07/27/2007 COVID-19 VACCINE SPIKEVAX (M ODERNA 50MCG/0.5ML) 12YO+ PFS 08/24/2023 COVID-19 vaccine (Moderna 100mcg/0.5mL) PF, MDV 10/14/2021,12/30/2020,12/30/2020,2020,12/02/2020 COVID-19 vaccine (Moderna 50mcg/0.5mL) 12YO+ BIVALENT PF, MDV 09/08/2022 HIB-HepB (Comvax) 11/21/2008 Influenza, IIV3 (Age >=3 years) 09/28/2007 Influenza, IIV4 08/24/2023,10/22/2015 Influenza, Inactivated AIIV4 (Age 65+ Years) Preserv Free 07/29/2021,08/10/2020 Pneumococcal Poly,23-Valent (Pneumovax) 03/29/2021 Tdap 06/06/2015,07/27/2007 Family History Medical History Relation Name Comments Cancer Brother 1 lung Drug Abuse Brother 1 Thyroid Disease Father Hypertension Mother Cancer Sister 1 Lung Relation Name Status Comments Brother 1 (Age 60) Heroin OD Brother 2 Alive Brother 3 Alive Daughter 1 Alive Daughter 2 Alive Father (Age 58) Maternal Grandfather Maternal Grandmother Mother Alive Paternal Grandfather Paternal Grandmother Sister 1 Alive Sister 2 Alive Son Alive Social History Tobacco Use Types Packs/Day Years Used Date Smoking Tobacco: Every Day Cigarettes Last attempted to quit: 04/27/2016 Smokeless Tobacco: Never Tobacco Cessation:Ready to Q uit: No; Counseling Given: Yes Comments:Smokes 4-5/day Alcohol Use Standard Drinks/Week Comments No 0 (1 standard drink = 0.6 oz pur e alcohol) [facility] Utilities Answer Date Recorded Do you have trouble paying f or utilities (for example, heat, electricity, water, phone)? Yes 02/05/2024 PHQ-2 Answer Date Recorded PHQ-2 TOTAL SCORE 0 02/05/2024 Social Connections Answer Date Recorded Do you often feel lonely or isolated from those around you? 0 02/05/2024 Financial Resource Strain Answer Date R ecorded Difficulty of Paying Living Expenses 2 02/05/2024 Difficulty of Paying Living Expenses 1 02/05/2024 Food Insecurity Answer Date Recorded Do you worry your food will run out before you are able to buy more? 1 02/05/2024 Transportation Needs Answer Date Record ed Does lack of transportation keep you from medica l appointments? 2 02/05/2024 Does lack of transportation keep you from work, meetings or getting things that you need? 2 02/05/2024 Housing Stability Answer Date Recorded What is your housing situation today? 1 02/05/2024 Sex and Gender Information Value Date Recorded Sex Assigned at Not on file Legal Sex Male 5:51 PM [employer] Gender Identity Not on file Sexual Orientation Not on file Obstetrics History Last Filed Vital Signs Vital Sign Reading Time Taken Comments Blood Pressure 137/80 02/05/2024 2:55 PM CDT Pulse 63 02/05/2024 2:55 PM CDT Temperature 36.3 C (97.4 F) 02/28/2023 12:57 PM CDT Respiratory Rate 22 04/06/2023 12:5 7 PM CDT Oxygen Saturation 99% 02/05/2024 2:55 PM CDT Inhaled Oxygen Concentration - - Weight 101.8 kg (224 lb 6.4 oz) 02/05/2024 2:55 PM CDT Height 170.2 cm (5' 7) 02/06/2023 5:12 PM CDT Body Mass Index 35.15 02/06/2023 5:12 PM CDT Plan of Treatment Health Maintenance Due Date Last Done Comments Colonoscopy through age 75 1998 Zoster (shingles) series for age 50+ (1 of 2) 2003 RSV vaccine for adults or (1 - Risk 60-74 years 1-dose series) 2013 Pneumococcal series for age 50+ (2 of 2 - PCV) 03/29/2022 03/29/2021 BMI (ht and wt on same day) for age 18+ 04/30/2022 04/30/2021, 10/07/2020, 05/02/2016, Additional history exists COVID-19 vaccine series ( season) 2024 08/24/2023, 09/08/2022, 10/14/2021, Additional history exists Influenza for age 65+ 07/14/2024 08/24/2023 , 07/29/2021, 08/10/2020, Additional history exists Depression screening for age 12+ 02/04/2025 02/05/2024, 02/05/2024, 02/05/2024, Additional history exists Tetanus booster 06/06/2025 06/06/2015, 07/27/2007 Lipids for age 45-75 02/04/2029 02/05/2024, 02/06/2023, 04/18/2022, Additional history exists Tdap Completed 06/06/2015, 07/27/2007 Hepatitis C screening for ag e 18-79 Completed 03/29/2021 AAA screening age 65-74 Completed 01/05/2023, 08/16 Procedures Procedure Name Priority Date/Time Associated Diagnosis Comments LIPID PANEL Routine 02/05/2024 3:55 PM CDT Hyperlipidemia, unspecified hyperlipidemia type CT ABDOMEN PELVIS WO STAT 01/05/2023 2:27 PM [employer] ANTI HCV Routine 03/29/2021 9:23 AM CDT Need for hepatitis C screening test from Last 3 Months or Most Recently Relevant to Health Maintenance Results * (ABNORMAL) LIPID PANEL (02/05/2024 3:55 PM CDT) CHOLESTEROL,TOTAL 126 100 - 199 mg/dL 02/06/2024 2:12 PM CDT [facility] Comment: Cholesterol, Total Reference Ranges Desirable <200 mg/dL Borderline 200-239 mg/dL High >=240 mg/dL TRIGLYCERIDES 282(H) <150 mg/dL 02/06/2024 2:12 PM CDT [facility] HDL CHOLESTEROL 29(L) >40 mg/dL 2:12 PM CDT [facility] NON-HDL CHOLESTEROL 97 <145 mg/dl 02/06/2024 2:12 PM CDT [facility] CHOL/HDL RATIO 4.34 <4.50 02/06/2024 2:12 PM CDT [facility] LDL CHOLESTEROL 41 <=130 mg/dL 02/06/2024 2:12 PM CDT [facility] VLDL CHOLESTEROL 56(H) <=30 mg/dL 02/06/2024 2:12 PM CDT [facility] PROVIDER ORDERED STATUS RANDOM 02/06/2024 2:12 PM CDT [facility] Blood BLOOD SPECIMEN / Unknown Venipuncture / Unknown 02/05/2024 3:55 PM CDT 02/05/2024 3:55 PM CDT us Daniel Jc MD CHEMISTRY Final Resu lt [facility] [address] [place] [address], * CT ABDOMEN PELVIS WO (01/05/2023 2:27 PM [employer]AL [employer]) Anatomical Region Laterality Modality Abdomen, Pelvis, AORTA, LIVER, SPLEEN Computed Tomography 01/05/2023 2:45 PM [employer] Impressions 01/05/2023 2:45 PM [employer] 1. A 4.8 x 3.7 cm high-density mass identified within the bladder; rule out blood clot; cystoscopic evaluation may be needed. 2. Indwelling Herrera catheter in place. 3. Enlarged prostate gland. 4. Small fat containing umbilical hernia. 5. Mild right-sided hydronephrosis is without any ureteral of the calculi on either side. 6. A questionable 2.1 cm exophytic mass left kidney; further assessment either with a CT of the kidneys with intravenous contrast or an MRI of the kidneys with intravenous contrast suggested. Please note that all CT scans at this facility use dose modulation, iterative reconstruction, and/or weight-based dosing when appropriate to reduce radiation dose to as low as reasonably achievable. Dictated by Robert Cheng MD @ Jan 05 2023 2:45PM (Electronically Signed) Narrative 01/05/2023 2:45 PM [employer] INDICATION: Hematuria. COMPARISON: CT abdomen and pelvis without intravenous contrast August 16, 2020. TECHNIQUE: CT abdomen and pelvis without intravenous contrast; coronal and sagittal reformats. Findings : A 5 mm noncalcified nodule lower lobe left lung slice 11 series 3; present on the CT from August 16, 2020. A 3 mm subpleural noncalcified nodular density lower lobe left lung slice 16 series 3; was present on the previous CT. Several small calcified granulomas left lower lobe. No evidence of pleural effusion. Normal size cardiac silhouette without any pericardial effusion. Minimal coronary artery calcifications. No focal hepatic or splenic pathology. Mild diffuse fatty infiltration of the liver. No pancreatic pathology. Gallbladder is unremarkable. No adrenal pathology. Mild right-sided hydronephrosis. No evidence of ureteral or renal calculi on either side. A 1.7 cm cystic lesion upper pole left kidney ;stable in appearance. A 2.1 cm exophytic mass mid left kidney; no interval change when compared to August 16, 2020. No retroperitoneal lymphadenopathy. Normal appendix. CT study of the pelvis reveals indwelling Herrera catheter. A 4.8 x 3.7 cm high dense mass identified within the bladder; rule out blood clot. Enlarged prostate gland. Is small fat containing umbilical hernia; no change Procedure Note Robert Cheng MBBS - 01/05/2023 INDICATION: Hematuria. COMPARISON: CT abdomen and pelvis without intravenous contrast August 16, 2020. TECHNIQUE: CT abdomen and pelvis without intravenous contrast; coronal and sagittalreformats. Findings : A 5 mm noncalcified nodule lower lobe left lung slice 11 series 3; presenton the CT from August 16, 2020. A 3 mm subpleural noncalcified nodular density lower lobe left lung slice16 series 3; was present on the previous CT. Several small calcified granulomas left lower lobe. No evidence of pleuraleffusion. Normal size cardiac silhouette without any pericardial effusion.Minimal coronary artery calcifications. No focal hepatic or splenicpathology. Mild diffuse fatty infiltration of the liver. No pancreaticpathology. Gallbladder is unremarkable. No adrenal pathology. Mildright-sided hydronephrosis. No evidence of ureteral or renal calculi oneither side. A 1.7 cm cystic lesion upper pole left kidney ;stable inappearance. A 2.1 cm exophytic mass mid left kidney; no interval changewhen compared to August 16, 2020. No retroperitoneal lymphadenopathy.Normal appendix. CT study of the pelvis reveals indwelling Herrera catheter.A 4.8 x 3.7 cm high dense mass identified within the bladder; rule outblood clot. Enlarged prostate gland. Is small fat containing umbilicalhernia; no change IMPRESSION: 1. A 4.8 x 3.7 cm high-density mass identified within the bladder; ruleout blood clot; cystoscopic evaluation may be needed. 2. Indwelling Herrera catheter in place. 3. Enlarged prostate gland. 4. Small fat containing umbilical hernia. 5. Mild right-sided hydronephrosis is without any ureteral of the calculion either side. 6. A questionable 2.1 cm exophytic mass left kidney; further assessmenteither with a CT of the kidneys with intravenous contrast or an MRI of thekidneys with intravenous contrast suggested. Please note that all CT scans at this facility use dose modulation,iterative reconstruction, and/or weight-based dosing when appropriate toreduce radiation dose to as low as reasonably achievable. Dictated by Robert Cheng MD @ Jan 05 2023 2:45PM (Electronically Signed) us Isaiah Irizarry DO CT Final Resul t * ANTI HCV (03/29/2021 9:23 AM CDT) HEPATITIS C ANTIBODY Non-React patricia Non-React patricia 03/29/2021 6:[address] [facility] Comment:Antibodies to HCV no t detected; does not exclude the possibility of exposure to HCV. Blood BLOOD SPECIMEN / Unknown Venipuncture / Unknown 03/29/2021 9:23 AM CDT 03/29/2021 9:24 AM CDT us Daniel Jc MD SEND OUTS Final Resu lt [facility] [employer] [facility] [address] [place] [address], from Last 3 Months or Most Recently Relevant to Health Maintenance Insurance [place] MEDICA[place] [facility] PLUS [facility] PLUS Advance Directives * Full Code (Latest Code Status on File) Date Activated Date Inactivated Comments 02/06/2023 5:57 PM 02/07/2023 4:02 PM Question Answer Comments Code Status Discussion: Reviewed Preferences * Full Code Date Activated Date Inactivated Comments 01/05/2023 8:40 PM 01/06/2023 11:58 AM Question Answer Comments Code Status Discussion: Reviewed Preferences Care Teams Mold Sander Relationship Specialty Start Date End Date Daniel Jc MD [address] [place] [address] PCP - General Family Practice 03/29/21 [facility] [address], [place] [address] 01/06/23
[2024-11-22 19:13] VITALS: BP 183/90; PULSE 73; RESP 16; TEMP 36.2; O2SAT 98; BMI 33.3
--- NOTE | 2024-11-22 19:52 | ED.EYEPROB ---
HPI - Eye Problem General Chief complaint: Eye Problems Stated complaint: Something in rt eye Time Seen by Provider: 11/22/24 19:30 History of Present Illness HPI Narrative: This 69-year-old male comes in with right eye irritation since awakening this morning. He feels like he maybe got something into his eye but does not report any specific event where this occurred. He states that he did turn on the shower and let it run into his right eye but did not get any relief with that. He has been frequently rubbing his eye and has excessive tearing but no purulent discharge. Related Data Home Medications ?Medication ?Instructions ?Recorded ?Confirmed amlodipine 5 mg tablet 5 mg PO DAILY 11/22/24 11/22/24 glipizide 5 mg tablet, extended 5 mg PO DAILY 11/22/24 11/22/24 release 24 hr insulin glargine 100 unit/mL (3 52 unit subcut QPM 11/22/24 11/22/24 mL) subcutaneous pen (Lantus Solostar U-100 Insulin) losartan 100 mg tablet 100 mg PO DAILY 11/22/24 11/22/24 metoprolol succinate 100 mg 100 mg PO DAILY 11/22/24 11/22/24 tablet,extended release 24 hr omeprazole 20 mg capsule,delayed 20 mg PO DAILY 11/22/24 11/22/24 release pen needle, diabetic 32 gauge x 11/22/24 11/22/24 5/32 (BD Liv 2nd Gen Pen Needle) pen needle,diabetic, disp unit 32 11/22/24 11/22/24 gauge x 5/32, remover and disposal unit (UltiGuard SafePack-Pen Needle) rosuvastatin 40 mg tablet 40 mg PO QPM 11/22/24 11/22/24 tamsulosin 0.4 mg capsule 0.8 mg PO DAILY 11/22/24 11/22/24 ticagrelor 90 mg tablet (Brilinta) 90 mg PO BID 11/22/24 11/22/24 Allergies Allergy/AdvReac Type Severity Reaction Status Date / Time No Known Allergies Allergy Verified 01/07/23 02:52 Review of Systems Status of ROS: Reports: 10 or more systems reviewed and unremarkable except as noted in History and below Narrative: Constitutional: No fevers, no weight gain or loss. Eyes: The right eye is injected with some increased tearing. No swelling. No purulence. HENT: No congestion, no sore throat, no ear pain. Cardiovascular: No chest pain, no palpitations. Respiratory: No shortness of breath, no wheezes, no cough. Gastrointestinal: No abdominal pain, no vomiting, no diarrhea. Genitourinary: No dysuria, no hematuria. Musculoskeletal: Normal range of motion. Skin: No rashes, no pruritis. Neurological: No dizziness, weakness, sensory change, speech change. Endo/Heme/Allergies: No bruising or bleeding. No polydipsia. Pysch: no suicidality, no anxiety, no insomnia. All other systems reviewed and are negative. [facility] Social History Smoking Status: Current every day smoker What tobacco products do you use: cigarettes Second hand tobacco smoke exposure: No How often do you have a drink containing alcohol: never How often do you have six or more drinks on one occasion: Never AUDIT-C Alcohol total score: 0 Non-prescribed substance use: denies use Exam Const: Vital Signs, click to edit/add: Vital Signs - 24 hr 11/22/24 19:13 Temperature 97.1 F L Pulse Rate [Pulse Oximeter] 73 Respiratory Rate 16 Blood Pressure [Ri ght Upper Arm] 183/90 H Pulse Oximetry 98 Oxygen Delivery Me thod Room Air Course Vital Signs Vital signs: Initial Vital Signs Temperature 97.1 F L 11/22/24 19:13 Temperature Source Temporal Artery Scan 11/22/24 19:13 Pulse Rate 73 11/22/24 19:13 Respiratory Rate 16 11/22/24 19:13 Blood Pressure 183/90 H 11/22/24 19:13 Blood Pressure Mean 121 H 11/22/24 19:13 Blood Pressure Position Sitting 11/22/24 19:13 Pulse Oximetry 98 11/22/24 19:13 Oxygen Delivery Method Room Air 11/22/24 19:13 Vital Signs Temperature 97.1 F L 11/22/24 19:13 Pulse Rate 73 11/22/24 19:13 Respiratory Rate 16 11/22/24 19:13 Blood Pressure 183/90 H 11/22/24 19:13 Pulse Oximetry 98 11/22/24 19:13 Oxygen Delivery Method Room Air 11/22/24 19:13 Temperature 97.1 F L 11/22/24 19:13 Pulse Rate 73 11/22/24 19:13 Respiratory Rate 16 11/22/24 19:13 Blood Pressure 183/90 H 11/22/24 19:13 Pulse Oximetry 98 11/22/24 19:13 Oxygen Delivery Method Room Air 11/22/24 19:13 MDM - Eye Problem MDM Narrative Medical decision making narrative: This patient comes in with irritation of his right eye. I did examine him under 10 times magnification with Optive visor and then also with the slit lamp. There is no evidence of foreign object. The patient is frequently rubbing his eye and I advised him to completely discontinue this as it can perpetuate his symptoms. I did also discuss tetracaine and fluorescein dye for further evaluation which he declined. He was provided with flurbiprofen ophthalmic from our eye kit. Discharge Plan Discharge Clinical Impression: Corneal abrasion Patient Disposition: Home, Self-Care Condition: Stable Additional Instructions: Use medication as needed and directed. Avoid rubbing her eye. Follow-up with platform operations director or science teacher if not improving or return if worsening. Prescriptions: No Action metoprolol succinate 100 mg tablet extended release 24 hr 100 mg PO DAILY glipizide 5 mg tablet extended release 24hr 5 mg PO DAILY amlodipine 5 mg tablet 5 mg PO DAILY tamsulosin 0.4 mg capsule 0.8 mg PO DAILY omeprazole 20 mg capsule,delayed release(DR/EC) 20 mg PO DAILY losartan 100 mg tablet 100 mg PO DAILY rosuvastatin 40 mg tablet 40 mg PO QPM insulin glargine [Lantus Solostar U-100 Insulin] 100 unit/mL (3 mL) insulin pen 52 unit subcut QPM (DME) pen needle, diabetic [BD Liv 2nd Gen Pen Needle] 32 gauge x 5/32 needle MISCELLANEOUS Patient Comments: [NO ORIGINAL SIG] Brilinta 90 mg tablet 90 mg PO BID (DME) UltiGuard SafePack-Pen Needle 32 gauge x 5/32 needle MISCELLANEOUS DIRECTED Follow Up/Referrals: Daniel Jc MD [Primary Care Provider] - Stand Alone Forms: [facility] Info Instructions
--- OUTSIDE RECORDS SUMMARY | 2024-11-22 19:59 | XMS_ITS | Clinical Summary ---
Author Organization [facility] s & [facility] Address [place], [place] [address] Care Team Providers Care Copying Machine Repairer Name Role Phone Daniel Jc MD Primary Care Provider [phone]- [phone] [facility] Care, [place] Unavailable Allergies Active Allergy Reactions Criticality Noted [...] mouth once daily. 90 Tablet Active Insulin [place], Disposable, (Pen Needle) 32 gauge x /32Indications: [...] Type Department Care Team Description 11/15/2024 Refill [facility] [address] [place] [address] Daniel Jc MD Refill Request (Triamcinolone) 11/04/2024 Telephone [facility] [address] [place] [address] Daniel Jc MD Appointment 09/19/2024 Nurse Triage [facility] [address] [place] [address] Daniel Jc MD Derm Problem from Last [...] drink = 0.6 oz pur e alcohol) [facility] Utilities Answer Date Recorded Do you have [...] on file Legal Sex Male 5:51 PM LIGHT FIXTURE SERVICER Gender Identity Not on file Sexual Orientation [...] ABDOMEN PELVIS WO STAT 01/05/2023 2:27 PM LIGHT FIXTURE SERVICER ANTI HCV Routine 03/29/2021 9:23 AM CDT Need for hepatitis C screening test from Last 3 Months or Most Recently Relevant to Health Maintenance Results * (ABNORMAL) LIPID PANEL (02/05/2024 3:55 PM CDT) CHOLESTEROL,TOTAL 126 100 - 199 mg/dL 02/06/2024 2:12 PM CDT [facility] Comment: Cholesterol, Total Reference Ranges Desirable <200 mg/dL Borderline 200-239 mg/dL High >=240 mg/dL TRIGLYCERIDES 282(H) <150 mg/dL 02/06/2024 2:12 PM CDT [facility] HDL CHOLESTEROL 29(L) >40 mg/dL 2:12 PM CDT [facility] NON-HDL CHOLESTEROL 97 <145 mg/dl 02/06/2024 2:12 PM CDT [facility] CHOL/HDL RATIO 4.34 <4.50 02/06/2024 2:12 PM CDT [facility] LDL CHOLESTEROL 41 <=130 mg/dL 02/06/2024 2:12 PM CDT [facility] VLDL CHOLESTEROL 56(H) <=30 mg/dL 02/06/2024 2:12 PM CDT [facility] PROVIDER ORDERED STATUS RANDOM 02/06/2024 2:12 PM CDT [facility] Blood BLOOD SPECIMEN / Unknown Venipuncture / Unknown 02/05/2024 3:55 PM CDT 02/05/2024 3:55 PM CDT us Daniel Jc MD CHEMISTRY Final Resu lt [facility] [address] [place] [address], * CT ABDOMEN PELVIS WO (01/05/2023 2:27 PM LIGHT FIXTURE SERVICER) Anatomical Region Laterality Modality Abdomen, Pelvis, AORTA, LIVER, SPLEEN Computed Tomography 01/05/2023 2:45 PM LIGHT FIXTURE SERVICER Impressions 01/05/2023 2:45 PM LIGHT FIXTURE SERVICER 1. A 4.8 x 3.7 cm high-density [...] 2:45PM (Electronically Signed) Narrative 01/05/2023 2:45 PM LIGHT FIXTURE SERVICER INDICATION: Hematuria. COMPARISON: CT abdomen and pelvis [...] patricia Non-React patricia 03/29/2021 6:07 PM CDT [facility] Comment:Antibodies to HCV no t detected; does not exclude the possibility of exposure to HCV. Blood BLOOD SPECIMEN / Unknown Venipuncture / Unknown 03/29/2021 9:23 AM CDT 03/29/2021 9:24 AM CDT us Daniel Jc MD SEND OUTS Final Resu lt [facility] [address] [place] [address], from Last 3 Months or Most Recently Relevant to Health Maintenance Insurance [place] MED[place] MEDICAID [facility] PL[facility] Advance Directives * Full Code (Latest Code Status on File) Date Activated Date Inactivated Comments 02/06/2023 5:57 PM 02/07/2023 4:02 PM Question Answer Comments Code Status Discussion: Reviewed Preferences * Full Code Date Activated Date Inactivated Comments 01/05/2023 8:40 PM 01/06/2023 11:58 AM Question Answer Comments Code Status Discussion: Reviewed Preferences Care Teams Copying Machine Repairer Relationship Specialty Start Date End Date Daniel Jc MD [address] [place] [address] PCP - General Family Practice 03/29/21 [facility] [address], [place] [address] 01/06/23
== END 2024-11-22 20:06 | disposition home or self-care (01) ==
PROVIDERS: Emergency Provider Emergency Medicine Emergency Medical Services; PCP Surgery
DX: S05.01XA Injury of conjunctiva and corneal abrasion without foreign body, right eye, initial encounter (principal)
CPT/HCPCS: 99283; 99284; A9270

== ENCOUNTER 2024-12-27 19:07 | Emergency (ER) | payer OTHER, SELFPAY ==
--- OUTSIDE RECORDS SUMMARY | 2024-12-27 19:09 | XMS_ITS | Clinical Summary ---
Author Organization [facility] s & [facility] Address [place], [place] [address] Care Team Providers Care Integrative Medicine Physician Name Role Phone Dainel Jc MD Primary Care Provider [phone]- [phone] [facility] Care, [place] Unavailable Allergies Active Allergy Reactions Criticality Noted Date Comments Codeine Other - Describe In Comment Field Comment: GI problems, Description: Metformin GI Upset 04/30/2021 Unlisted Allergen (Include Detail In Comments) GI Upset 04/16/2010 Medications blood sugar diagnostic (Contour Next Test Strips) stripIndications:T ype 2 diabetes mellitus with diabetic polyneuropathy, without long-term current use of insulin (HC) USE TO TEST 4 TIMES DAILY 400 Each 3 08/19/20 22 Active aspirin chewable 81 mg chewable tabletIndications: ST elevation myocardial infarction (STEMI), unspecified artery (HC) Take 1 Tablet (81 mg) by mouth or nasogastric tube once daily. 90 Tablet 02/09/20 23 Active amLODIPine (NORVASC) 5 mg tabletIndications: Essential hypertension Take 1 Tablet (5 mg) by mouth once daily. 90 Tablet 3 02/05/20 24 Active gabapentin (NEURONTIN) 300 mg capsuleIndications :Type 2 diabetes mellitus with diabetic polyneuropathy, without long-term current use of insulin (HC) Take 2 Capsules (600 mg) by mouth at bedtime. 180 Capsule 3 02/05/20 24 Active glipiZIDE extended-release (GLUCOTROL XL) 5 mg Extended-Release tabletIndications: Type 2 diabetes mellitus with diabetic polyneuropathy, without long-term current use of insulin (HC) Take 1 Tablet (5 mg) by mouth once daily before a meal. 90 Tablet 3 03/25/20 24 Active losartan (COZAAR) 100 mg tabletIndications: HTN (hypertension) Take 1 Tablet (100 mg) by mouth once daily. 90 Tablet 3 02/05/20 Active Insulin [place], Disposable, (Pen Needle) 32 gauge x Indications:T ype 2 diabetes mellitus with diabetic polyneuropathy, without long-term current use of insulin (HC) As directed. Remove the 2 covers on the insulin pen needle before administering insulin dose. 100 Each 3 02/05/20 Active metoprolol succinate (TOPROL XL) 100 mg Sustained-Release tabletIndications: HTN (hypertension) Take 1 Tablet (100 mg) by mouth once daily. 90 Tablet 3 02/05/20 Active omeprazole (PRILOSEC) 20 mg Delayed-Release capsuleIndications :Chronic GERD Take 1 Capsule (20 mg) by mouth once daily before a meal. 90 Capsule 3 02/05/20 Active rosuvastatin (CRESTOR) 40 mg tabletIndications: Hyperlipidemia, unspecified hyperlipidemia type Take 1 Tablet (40 mg) by mouth at bedtime. 90 Tablet 3 02/05/20 Active tamsulosin (FLOMAX) 0.4 mg capsuleIndications :Urinary retention Take 2 Capsules (0.8 mg) by mouth once daily after a meal. 180 Capsule 3 02/05/20 Active insulin glargine, U-100, (Lantus Solostar U-100 Insulin) 100 unit/mL (3 mL) penIndications:Typ e 2 diabetes mellitus with diabetic polyneuropathy, without long-term current use of insulin (HC) Inject 52 units subcutaneous before bedtime. 45 mL 2 05/19/20 Active triamcinolone (ARISTOCORT; KENALOG) 0.1 % creamIndications:I nverse psoriasis APPLY TOPICALLY TO AFFECTED AREA(S) TWO TIMES DAILY. USE TWICE DAILY ON AFFECTED AREA FOR UP TO 2 WEEKS STRAIGHT, THEN STOP 80 g 1 11/20/19 Active Active Problems Problem Noted Date Diagnosed Date [...] Encounters Date Type Department Care Team Description 12/26/2024 Refill [facility] [address] [place] [address] Gallito Reddy MD Refill Request (Brilinta) 11/15/2024 Refill [facility] [address] [place] [address] Daniel Jc MD Refill Request (Triamcinolone) 11/04/2024 Telephone [facility] [address] [place] [address] Daniel Jc MD Appointment from Last 3 Months Immunizations Name Administration [...] drink = 0.6 oz pur e alcohol) PHQ-2 Answer Date Recorded PHQ-2 TOTAL SCORE [...] is your housing situation today? 1 02/05/2024 Utilities Answer Date Recorded Do you have trouble paying f or utilities (for example, heat, electricity, water, phone)? 1 02/05/2024 Sex and Gender Information Value Date Recorded Sex Assigned at Not on file Legal Sex Male 5:51 PM COMMUNICATIONS TECHNICIAN Gender Identity Not on file Sexual Orientation [...] ABDOMEN PELVIS WO STAT 01/05/2023 2:27 PM COMMUNICATIONS TECHNICIAN ANTI HCV Routine 03/29/2021 9:23 AM CDT Need for hepatitis C screening test from Last 3 Months or Most Recently Relevant to Health Maintenance Results * (ABNORMAL) LIPID PANEL (02/05/2024 3:55 PM CDT) CHOLESTEROL,TOTAL 126 100 - 199 mg/dL 02/06/2024 2:12 PM CDT [facility] Comment: Cholesterol, Total Reference Ranges Desirable <200 mg/dL Borderline 200-239 mg/dL High >=240 mg/dL TRIGLYCERIDES 282(H) <150 mg/dL 02/06/2024 2:12 PM CDT [facility] HDL CHOLESTEROL 29(L) >40 mg/dL 2:12 PM CDT [facility] NON-HDL CHOLESTEROL 97 <145 mg/dl 02/06/2024 2:12 PM CDT [facility] CHOL/HDL RATIO 4.34 <4.50 02/06/2024 2:12 PM CDT [facility] LDL CHOLESTEROL 41 <=130 mg/dL 02/06/2024 2:12 PM CDT [facility] VLDL CHOLESTEROL 56(H) <=30 mg/dL 02/06/2024 2:12 PM CDT [facility] PROVIDER ORDERED STATUS RANDOM 02/06/2024 2:12 PM CDT [facility] Blood BLOOD SPECIMEN / Unknown Venipuncture / Unknown 02/05/2024 3:55 PM CDT 02/05/2024 3:55 PM CDT us Daniel Jc MD CHEMISTRY Final Resu lt [facility] [address] [place] [address], [place] * CT ABDOMEN PELVIS WO (01/05/2023 2:27 PM COMMUNICATIONS TECHNICIAN) Anatomical Region Laterality Modality Abdomen, Pelvis, AORTA, LIVER, SPLEEN Computed Tomography 01/05/2023 2:45 PM COMMUNICATIONS TECHNICIAN Impressions 01/05/2023 2:45 PM COMMUNICATIONS TECHNICIAN 1. A 4.8 x 3.7 cm high-density [...] 2:45PM (Electronically Signed) Narrative 01/05/2023 2:45 PM COMMUNICATIONS TECHNICIAN INDICATION: Hematuria. COMPARISON: CT abdomen and pelvis [...] @ Jan 05 2023 2:45PM (Electronically Signed) Isaiah Irizarry DO CT Final Resul t * ANTI HCV (03/29/2021 9:23 AM CDT) HEPATITIS C ANTIBODY Non-React patricia Non-React patricia 03/29/2021 6:07 PM CDT [facility] Comment:Antibodies to HCV no t detected; does not exclude the possibility of exposure to HCV. Blood BLOOD SPECIMEN / Unknown Venipuncture / Unknown 03/29/2021 9:23 AM CDT 03/29/2021 9:24 AM CDT us Daniel Jc MD SEND OUTS Final Resu lt [facility] [address] [place] [address], [place] from Last 3 Months or Most Recently Relevant to Health Maintenance Insurance [place] MEDICAID MEDICAID [facility] PLUS [facility] PLUS Advance Directives * Full Code (Latest Code Status on File) Date Activated Date Inactivated Comments 02/06/2023 5:57 PM 02/07/2023 4:02 PM Question Answer Comments Code Status Discussion: Reviewed Preferences * Full Code Date Activated Date Inactivated Comments 01/05/2023 8:40 PM 01/06/2023 11:58 AM Question Answer Comments Code Status Discussion: Reviewed Preferences Care Teams Integrative Medicine Physician Relationship Specialty Start Date End Date Daniel [place] [address] PCP - General Family Practice 03/29/21 [facility] [address] [address] 01/06/23
[2024-12-27 19:12] VITALS: BP 161/84; PULSE 93; RESP 24; TEMP 36.4; O2SAT 95; BMI 35.2
--- OUTSIDE RECORDS SUMMARY | 2024-12-27 20:12 | XMS_ITS | Clinical Summary ---
Author Organization [facility] & [facility] Address [place], [place] [address] Care Team Providers Care Elementary Substitute Teacher Name Role Phone Daniel Jc MD Primary Care Provider [phone]- [phone] [facility] Care, [place] Unavailable [phone] Allergies Active Allergy Reactions Criticality Noted Date [...] daily. 90 Tablet 3 02/05/20 Active Insulin [place], Disposable, (Pen Needle) 32 gauge x Indications:T [...] Type Department Care Team Description 12/26/2024 Refill [facility] [address] [place] [address] Gallito Reddy MD Refill Request (Brilinta) 11/15/2024 Refill [facility] [address] [place] [address] Daniel Jc MD Refill Request (Triamcinolone) 11/04/2024 Telephone [facility] [address] [place] [address] Daniel Jc MD Appointment from Last 3 [...] on file Legal Sex Male 5:51 PM GLOBAL COMPENSATION MANAGER Gender Identity Not on file Sexual Orientation [...] ABDOMEN PELVIS WO STAT 01/05/2023 2:27 PM GLOBAL COMPENSATION MANAGER ANTI HCV Routine 03/29/2021 9:23 AM CDT Need for hepatitis C screening test from Last 3 Months or Most Recently Relevant to Health Maintenance Results * (ABNORMAL) LIPID PANEL (02/05/2024 3:55 PM CDT) CHOLESTEROL,TOTAL 126 100 - 199 mg/dL 02/06/2024 2:12 PM CDT [facility] Comment: Cholesterol, Total Reference Ranges Desirable <200 mg/dL Borderline 200-239 mg/dL High >=240 mg/dL TRIGLYCERIDES 282(H) <150 mg/dL 02/06/2024 2:12 PM CDT [facility] HDL CHOLESTEROL 29(L) >40 mg/dL 2:12 PM CDT [facility] NON-HDL CHOLESTEROL 97 <145 mg/dl 02/06/2024 2:12 PM CDT [facility] CHOL/HDL RATIO 4.34 <4.50 02/06/2024 2:12 PM CDT [facility] LDL CHOLESTEROL 41 <=130 mg/dL 02/06/2024 2:12 PM CDT [facility] VLDL CHOLESTEROL 56(H) <=30 mg/dL 02/06/2024 2:12 PM CDT [facility] PROVIDER ORDERED STATUS RANDOM 02/06/2024 2:12 PM CDT [facility] Blood BLOOD SPECIMEN / Unknown Venipuncture / Unknown 02/05/2024 3:55 PM CDT 02/05/2024 3:55 PM CDT us Daniel Jc MD CHEMISTRY Final Resu lt [facility] [address] [place] [address], [place] * CT ABDOMEN PELVIS WO (01/05/2023 2:27 PM GLOBAL COMPENSATION MANAGER) Anatomical Region Laterality Modality Abdomen, Pelvis, AORTA, LIVER, SPLEEN Computed Tomography 01/05/2023 2:45 PM GLOBAL COMPENSATION MANAGER Impressions 01/05/2023 2:45 PM GLOBAL COMPENSATION MANAGER 1. A 4.8 x 3.7 cm high-density [...] 2:45PM (Electronically Signed) Narrative 01/05/2023 2:45 PM GLOBAL COMPENSATION MANAGER INDICATION: Hematuria. COMPARISON: CT abdomen and pelvis [...] patricia Non-React patricia 03/29/2021 6:07 PM CDT [facility] Comment:Antibodies to HCV no t detected; does not exclude the possibility of exposure to HCV. Blood BLOOD SPECIMEN / Unknown Venipuncture / Unknown 03/29/2021 9:23 AM CDT 03/29/2021 9:24 AM CDT us Daniel Jc MD SEND OUTS Final Resu lt [facility] [address] [place] [address], [place] from Last 3 Months or Most Recently Relevant to Health Maintenance Insurance [place] MED[place] MEDICAID [facility] PLUS [facility] PLUS Advance Directives * Full Code (Latest Code Status on File) Date Activated Date Inactivated Comments 02/06/2023 5:57 PM 02/07/2023 4:02 PM Question Answer Comments Code Status Discussion: Reviewed Preferences * Full Code Date Activated Date Inactivated Comments 01/05/2023 8:40 PM 01/06/2023 11:58 AM Question Answer Comments Code Status Discussion: Reviewed Preferences Care Teams Elementary Substitute Teacher Relationship Specialty Start Date End Date [place] [address] PCP - General Family Practice 03/29/21 [facility] [address] [address] 01/06/23
== END 2024-12-27 20:15 | disposition left against medical advice (07) ==
LOC: ED 20:10
PROVIDERS: PCP Surgery
DX: Z53.21 Procedure and treatment not carried out due to patient leaving prior to being seen by health care provider (principal)

== ENCOUNTER 2025-05-07 01:00 | Outpatient (CLI) | payer OTHER, SELFPAY | END 2025-05-07 01:01 | disposition home or self-care (01) | LOC: AMB 05-08 13:33 | PROVIDERS: PCP Surgery; Visit Provider Family Medicine | DX: F29 Unspecified psychosis not due to a substance or known physiological condition (principal) | CPT/HCPCS: A0425; A0427 ==

== ENCOUNTER 2025-05-07 01:17 | Emergency (ER) | payer MEDICAID, SELFPAY ==
--- OUTSIDE RECORDS SUMMARY | 2025-05-07 01:19 | XMS_ITS | Clinical Summary ---
Author Organization [facility] Address [address] [place] [address] Care Team Providers Care Grocery Associate Name Role Phone Daniel Jc MD Primary Care Provider [phone] [facility], [place] Unavailable [phone] Allergies Active Allergy Reactions Criticality Noted Date [...] once daily. 90 Tablet 02/09/20 23 Active Insulin [place], Disposable, (Pen Needle) 32 gauge x 5/32Indications:T ype 2 diabetes mellitus with diabetic polyneuropathy, without long-term current use of insulin (HC) As directed. Remove the 2 covers on the insulin pen needle before administering insulin dose. 100 Each 3 02/05/20 24 Active clotrimazole 1 % creamIndications:I ntertrigo Apply topically to affected area(s) two times daily. 85 g 1 03/24/20 25 Active triamcinolone 0.1 % creamIndications:I nverse psoriasis Apply topically to affected area(s) two times daily. Use twice daily on affected area for up to 2 weeks straight, then stop 80 g 1 03/24/20 25 Active semaglutide (Ozempic) 2 mg/3 mL subcutaneous penIndications:Typ e 2 diabetes mellitus with diabetic polyneuropathy, without long-term current use of insulin (HC) Inject 0.25 mg subcutaneous once weekly for 28 days, THEN 0.5 mg once weekly for 28 days. 6 mL 03/24/20 25 025 Active semaglutide 1 mg/dose (4 mg/3 mL) subcutaneous penIndications:Typ e 2 diabetes mellitus with diabetic polyneuropathy, without long-term current use of insulin (HC) Inject 1 mg subcutaneous once weekly for 28 days. 3 mL 05/19/20 25 025 Active semaglutide (Ozempic) 2 mg/dose (8 mg/3 mL) subcutaneous penIndications:Typ e 2 diabetes mellitus with diabetic polyneuropathy, without long-term current use of insulin (HC) Inject 2 mg subcutaneous once weekly. 9 mL 3 06/16/20 25 Active gabapentin 300 mg capsuleIndications :Type 2 diabetes mellitus with diabetic polyneuropathy, without long-term current use of insulin (HC) Take 2 Capsules (600 mg) by mouth at bedtime. 180 Capsule 3 03/24/20 25 Active tamsulosin 0.4 mg capsuleIndications :Urinary retention Take 2 Capsules (0.8 mg) by mouth once daily after a meal. 180 Capsule 3 03/24/20 25 Active rosuvastatin 40 mg tabletIndications: Hyperlipidemia, unspecified hyperlipidemia type Take 1 Tablet (40 mg) by mouth at bedtime. 90 Tablet 3 03/24/20 25 Active omeprazole 20 mg Delayed-Release capsuleIndications :Chronic GERD Take 1 Capsule (20 mg) by mouth once daily before a meal. 90 Capsule 3 03/24/20 25 Active metoprolol succinate 100 mg Sustained-Release tabletIndications: HTN (hypertension) Take 1 Tablet (100 mg) by mouth once daily. 90 Tablet 3 03/24/20 25 Active insulin glargine (U-100) (Lantus Solostar U-100 Insulin) 100 unit/mL (3 mL) penIndications:Typ e 2 diabetes mellitus with diabetic polyneuropathy, without long-term current use of insulin (HC) Inject 60 units subcutaneous before bedtime. 75 mL 3 03/24/20 25 Active glipiZIDE extended-release 5 mg Extended-Release tabletIndications: Type 2 diabetes mellitus with diabetic polyneuropathy, without long-term current use of insulin (HC) Take 1 Tablet (5 mg) by mouth once daily before a meal. 90 Tablet 3 03/24/20 25 Active amLODIPine 5 mg tabletIndications: Essential hypertension Take 1 Tablet (5 mg) by mouth once daily. 90 Tablet 3 03/24/20 25 Active losartan-hydrochlo rothiazide 100-12.5 mg tabletIndications: Essential hypertension Take 1 Tablet by mouth once daily. 90 Tablet 3 03/24/20 25 Active Active Problems Problem Noted Date Diagnosed [...] Encounters Date Type Department Care Team Description 2025 Refill [facility] [address] [place] [address] Daniel Jc MD Refill Request (Ozempic) 03/26/2025 Telephone [facility] [address] [facility] [address] Daniel Jc MD Results 03/24/2025 9:05 AM CDT Office Visit [facility] [address] [place] [address] Daniel Jc MD Lab; Diabetes 03/24/2025 Travel 02/05/2025 Refill [facility] [address] [facility] [address] Daniel Jc MD Refill Request (Omeprazole, Rosuvastatin, Amlodipine, Losartan, Glipizide Extended-release, Tamsulosin, Metoprolol Succinate) from Last 3 Months Immunizations Immunization Administration Dates Next Due Anthrax Vaccine 07/27/2007 [...] or isolated from those around you? 0 03/24/2025 Financial Resource Strain Answer Date R ecorded Difficulty of Paying Living Expenses 3 03/24/2025 Difficulty of Paying Living Expenses Not on file 03/24/2025 Food Insecurity Answer Date Recorded Do you worry your food will run out before you are able to buy more? 1 03/24/2025 Transportation Needs Answer Date Record ed Does lack of transportation keep you from medica l appointments? 1 03/24/2025 Does lack of transportation keep you from work, meetings or getting things that you need? 1 03/24/2025 Housing Stability Answer Date Recorded What is your housing situation today? 1 03/24/2025 Utilities Answer Date Recorded Do you have trouble paying f or utilities (for example, heat, electricity, water, phone)? 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 Gender Identity Not on file Sexual Orientation Not on file Obstetrics History Last Filed Vital Signs Vital Sign Reading Time Taken Comments Blood Pressure 159/90 03/24/2025 9:00 AM CDT Pulse 63 03/24/2025 9:00 AM CDT Temperature 36.3 C (97.4 F) 02/28/2023 12:57 PM CDT Respiratory Rate 22 04/06/2023 12:57 PM CDT Oxygen Saturation 98% 03/24/2025 8:59 AM CDT Inhaled Oxygen Concentration - - Weight 102.1 kg (225 lb) 03/24/2025 8:59 AM CDT Height 170.2 cm (5' 7) 02/06/2023 5:12 PM CDT Body Mass Index 35.24 02/06/2023 5:12 PM CDT Plan of Treatment Upcoming Encounters Date Type Department Care Team (Late st Contact Info) Description 05/12/2025 9:00 AM CDT Orders Only [facility] [address] [place] [address] Health Maintenance Due Date Last Done Comments Zoster (shingles) series for age 50+ (1 of 2) 1972 Colonoscopy through age 75 1998 Hepatitis B series for 19+ ( 2 of 3 - 19+ 3-dose series) 12/19/2008 11/21/2008 RSV vaccine for adults or (1 - Risk 60-74 years 1-dose series) 2013 Pneumococcal series for age 50+ (2 of 2 - PCV) 03/29/2022 03/29/2021 BMI (ht and wt on same day) for age 18+ 04/30/2022 04/30/2021, 10/07/2020, 05/02/2016, Additional history exists COVID-19 vaccine series ( season) 2024 08/24/2023, 09/08/2022, 10/14/2021, Additional history exists Depression screening for age 12+ 02/04/2025 02/05/2024, 02/05/2024, 02/05/2024, Additional history exists Tetanus booster 06/06/2025 06/06/2015, 07/27/2007 Influenza Vaccine (Season Ended) 2025 08/24/2023, 07/29/2021, 08/10/2020, Additional history exists Lipids for age 45-75 03/24/2030 03/24/2025, 02/05/2024, 02/06/2023, Additional history exists Tdap Completed 06/06/2015, 07/27/2007 Hepatitis C screening for ag e 18-79 Completed 03/29/2021 AAA screening age 65-74 Completed 01/05/2023, 08/16 Procedures Procedure Name Priority Date/Time Associated Diagnosis Comments HEMOGLOBIN A1C MONITORING (POCT) Routine 03/24/2025 8:48 AM CDT Type 2 diabetes mellitus with diabetic polyneuropathy, without long-term current use of insulin (HC) LIPID PANEL Routine 03/24/2025 8:47 AM CDT Hyperlipidemia, unspecified hyperlipidemia type PSA TOTAL Routine 03/24/2025 8:47 AM CDT Screening for prostate cancer BASIC METABOLIC PANEL Routine 03/24/2025 8:47 AM CDT Essential hypertension URINE ALBUMIN TO CREATININE RATIO, RANDOM Routine 03/24/2025 8:47 AM CDT Type 2 diabetes mellitus with diabetic polyneuropathy, without long-term current use of insulin (HC) CT ABDOMEN PELVIS WO STAT 01/05/2023 2:27 PM FLOORING SALES MANAGER ANTI HCV Routine 03/29/2021 9:23 AM CDT Need for hepatitis C screening test from Last 3 Months or Most Recently Relevant to Health Maintenance Results * (ABNORMAL) HEMOGLOBIN A1C MONITORING (POCT) (03/24/2025 8:48 AM CDT) POC HEMOGLOBIN A1C 10.8(H) <6.0 % OF TOTAL HGB [facility] Comment: Any point of care results exhibiting inconsistency with the patient's clinical status should be repeated using a different testing method. Blood BLOOD SPECIMEN / Unknown 03/24/2025 8:48 AM CDT 03/24/2025 8:49 AM CDT us Daniel Jc MD CHEMISTRY Final Resu lt [facility] [address] [place] [address], [facility] [address] [place] [address] * (ABNORMAL) URINE ALBUMIN TO CREATININE RATIO, RANDOM (03/24/2025 8:47 AM CDT) Pathologist [facility] [place] ALB RAND URINE 179.0 mg/L 03/24/2025 2:51 PM CDT [facility] CREATININE,URIN E 0.58 g/L 03/24/2025 2:51 PM CDT [facility] ALBUMIN TO CREATININE RATIO,RAND UR 308.6(H) <30.0 mg/g creat 03/24/2025 2:51 PM CDT [facility] Urine URINE SPECIMEN / Unknown Non-Blood / Unknown 03/24/2025 8:47 AM CDT 03/24/2025 8:47 AM CDT Narrative [facility] - 03/24/2025 2:51 PM CDT If Albumin to Creatinine Ratio is elevated, consider the following: Elevations seen with incipient nephropathy associated with diabetes mellitus or hypertension. Stress, exercise,hematuria, and urinary tract infection may also produce elevated results. If clinically indicated, confirm with 24 Hour Albumin to Creatinine Ratio. Daniel Jc MD URINE Final Resu lt [facility] [address] [place] [address], * PSA TOTAL (DIAG OR SCREEN) (03/24/2025 8:47 AM CDT) PSA, TOTAL 0.27 < OR = 4.00 ng/mL [facility] Comment: The total PSA value from this assay system is standardized against the WHO standard. The test result will be approximately 20% lower when compared to the equimolar-standardized total PSA (Adan Ninole). Comparison of serial PSA results should be interpreted with this fact in mind. This test was performed using the Siemens chemiluminescent method. Values obtained from different assay methods cannot be used interchangeably. PSA levels, regardless of value, should not be interpreted as absolute evidence of the presence or absence of disease. Blood BLOOD SPECIMEN / Unknown 03/24/2025 8:47 AM CDT 03/24/2025 8:48 AM CDT Daniel Jc MD CHEMISTRY Final Resu lt Performing Organization Address [facility]/ZIP Co de Phone Number [employer] [facility] [address] [place] [address], [facility] [address] [place] [phone] * (ABNORMAL) LIPID PANEL (03/24/2025 8:47 AM CDT) CHOLESTEROL, TOTAL 121 <200 mg/dL [facility] HDL CHOLESTEROL 35(L) > OR = 40 mg/dL [facility] TRIGLYCERIDES 317(H) <150 mg/dL [facility] Comment: If a non-fasting specimen was collected, consider repeat triglyceride testing on a fasting specimen if clinically indicated. Gaetano et al. J. of Clin. Lipidol. 2015;9:129-169. LDL-CHOLESTEROL 53 mg/dL (calc) [facility] Comment: Reference range: <100 Desirable range <100 mg/dL for primary prevention; <70 mg/dL for patients with CHD or diabetic patients with > or = 2 CHD risk factors. LDL-C is now calculated using the Martha calculation, which is a validated novel method providing better accuracy than the Friedewald equation in the estimation of LDL-C. Soto HILLMAN et al. ANDIE. 2013;310(19): 9768-7087 (http://education.[employer]/faq/EAT642) CHOL/HDLC RATIO 3.5 <5.0 (calc) [facility] NON HDL CHOLESTEROL 86 <130 mg/dL (calc) [facility] Comment: For patients with diabetes plus 1 major ASCVD risk factor, treating to a non-HDL-C goal of <100 mg/dL (LDL-C of <70 mg/dL) is considered a therapeutic option. Blood BLOOD SPECIMEN / Unknown 03/24/2025 8:47 AM CDT 03/24/2025 8:48 AM CDT us Daniel Jc MD CHEMISTRY Final Resu lt [facility] [address] [place] [address], [facility] [address] * (ABNORMAL) BASIC METABOLIC PANEL (03/24/2025 8:47 AM CDT) GLUCOSE 260(H) 65 - 99 mg/dL [facility] Comment: Fasting reference interval For someone without known diabetes, a glucose value >125 mg/dL indicates that they may have diabetes and this should be confirmed with a follow-up test. UREA NITROGEN (BUN) 13 7 - 25 mg/dL [facility] CREATININE 0.99 0.70 - 1.28 mg/dL [facility] EGFR 81 > OR = 60 mL/min/1. 73m2 [facility] BUN/CREATININE RATIO SEE NOTE: (calc) [facility] Comment: Not Reported: BUN and Creatinine are within reference range. SODIUM 136 135 - 146 mmol/L [facility] POTASSIUM 3.7 3.5 - 5.3 mmol/L [facility] CHLORIDE 101 98 - 110 mmol/L [facility] CARBON DIOXIDE 24 20 - 32 mmol/L [facility] ELECTROLYTE BALANCE 11 7 - 17 mmol/L (calc) [facility] CALCIUM 8.7 8.6 - 10.3 mg/dL [facility] Blood BLOOD SPECIMEN / Unknown 03/24/2025 8:47 AM CDT 03/24/2025 8:48 AM CDT us Daniel Jc MD CHEMISTRY Final Resu lt [employer] [facility] [address] [place] [address], [facility] [address] [place] [address] * CT ABDOMEN PELVIS WO (01/05/2023 2:27 PM FLOORING SALES MANAGER) Anatomical Region Laterality Modality Abdomen, Pelvis, AORTA, LIVER, SPLEEN Computed Tomography 01/05/2023 2:45 PM FLOORING SALES MANAGER Impressions 01/05/2023 2:45 PM FLOORING SALES MANAGER 1. A 4.8 x 3.7 cm [...] 2:45PM (Electronically Signed) Narrative 01/05/2023 2:45 PM FLOORING SALES MANAGER INDICATION: Hematuria. COMPARISON: CT abdomen and [...] patricia Non-React patricia 03/29/2021 6:07 PM CDT [facility] Comment:Antibodies to HCV no t detected; does not exclude the possibility of exposure to HCV. Blood BLOOD SPECIMEN / Unknown Venipuncture / Unknown 03/29/2021 9:23 AM CDT 03/29/2021 9:24 AM CDT us Daniel Jc MD SEND OUTS Final Resu lt [facility] [address] [place] [address], [place] from Last 3 Months or Most Recently Relevant to Health Maintenance [place] [facility] [phone] [place] [address] [facility] PL[facility] Advance Directives * Full Code (Latest Code Status on File) Date Activated Date Inactivated Comments 02/06/2023 5:57 PM 02/07/2023 4:02 PM Question Answer Comments Code Status Discussion: Reviewed Preferences * Full Code Date Activated Date Inactivated Comments 01/05/2023 8:40 PM 01/06/2023 11:58 AM Question Answer Comments Code Status Discussion: Reviewed Preferences Care Teams Grocery Associate Relationship Specialty Start Date End Date Daniel Jc [place] [address] PCP - General Family Practice 03/29/21 [place] [id number] [address] 01/06/23
[2025-05-07 01:31] VITALS: BP 146/91; PULSE 88; RESP 18; TEMP 36.3; O2SAT 93
--- NOTE | 2025-05-07 02:04 | ED.GENADULT ---
HPI - General Adult General Chief complaint: Altered Mental Status Stated complaint: Hallucinations Time Seen by Provider: 05/07/25 01:46 Source: EMS Mode of arrival: EMS History of Present Illness HPI narrative: 70-year-old male presents to the emergency department by EMS. He called the police because he reports that ?God was holding him down, performing a spiritual surgery. Patient is being kicked out of his apartment due to a retic behavior issues. It does sound as though he has connections with [facility] social welfare research worker by report given. Patient reports that he noticed twitching in his outstretched leg this evening. He reports that he watches a lot of ?[employer] 11 11 videos on [employer]. He reports that God has healed him from cancers and from heart attacks. He denies hearing or seeing anyone but states that he felt like he was briefly held down and felt that this was done by got directly to ?perform a spiritual surgery?. He is very quickly frustrated by the fact that none of the seem to believe him. He is showering, filling his medications, has a cough are, takes care of his dog. He reports that he is eating and drinking normally, failing all of his basic needs. He denies any falls or injury, no headache or fever. No vomiting. He denies a history of mental health issues or hospitalizations for this. We have pretty limited records on him, it looks like he comes in about once a year for various things, typically in the middle of the night for things that could of course be seen in the clinic. He denies any intent to harm himself or harm others. EMS reports that he is being for sat of his apartment at the end of the month. Patient reports that he has a plan to live in stay in his car. He is able to account how he will get food, medicines and manage his life. He is frustrated that none of the seem to be believing him that he was held down by God. EMS did not notice any signs of assault, struggle or any assailants at the patient's apartment. Patient is requesting to leave shortly after arrival, citing that he is ready to go home, take care of his dog and prepare for his move. He reports no drug or alcohol use in 40 years. He is able to list the indications for his medications. No prior psychiatric visits. Past medical history notable for coronary artery disease, diabetes. EMS reporting normal blood sugar. Patient declines to perform review of systems. Related Data Home Medications ?Medication ?Instructions ?Recorded ?Confirmed amlodipine 5 mg tablet 5 mg PO DAILY 11/22/24 12/27/24 glipizide 5 mg tablet, extended 5 mg PO DAILY 11/22/24 12/27/24 release 24 hr insulin glargine 100 unit/mL (3 52 unit subcut QPM 11/22/24 12/27/24 mL) subcutaneous pen (Lantus Solostar U-100 Insulin) losartan 100 mg tablet 100 mg PO DAILY 11/22/24 12/27/24 metoprolol succinate 100 mg 100 mg PO DAILY 11/22/24 12/27/24 tablet,extended release 24 hr omeprazole 20 mg capsule,delayed 20 mg PO DAILY 11/22/24 12/27/24 release pen needle, diabetic 32 gauge x 11/22/24 11/22/24 5/32 (BD Liv 2nd Gen Pen Needle) pen needle,diabetic, disp unit 32 11/22/24 11/22/24 gauge x 5/32, remover and disposal unit (UltiGuard SafePack-Pen Needle) rosuvastatin 40 mg tablet 40 mg PO QPM 11/22/24 12/27/24 tamsulosin 0.4 mg capsule 0.8 mg PO DAILY 11/22/24 12/27/24 ticagrelor 90 mg tablet (Brilinta) 90 mg PO BID 11/22/24 12/27/24 gabapentin 300 mg capsule mg 12/27/24 Allergies Allergy/AdvReac Type Severity Reaction Status Date / Time No Known Allergies Allergy Verified 12/27/24 19:19 PFSH PFS Social History Smoking Status: Current every day smoker What tobacco products do you use: cigarettes Second hand tobacco smoke exposure: No How often do you have a drink containing alcohol: never How often do you have six or more drinks on one occasion: Never AUDIT-C Alcohol total score: 0 Non-prescribed substance use: denies use Exam Const: Vital Signs, click to edit/add: Vital Signs - 24 hr 05/07/25 01:31 Temperature 97.4 F L Pulse Rate [Right Pulse Oximeter] 88 Respiratory Rate 18 Blood Pressure [Ri ght Upper Arm] 146/91 H Pulse Oximetry 93 Oxygen Delivery Me thod Room Air Documenting provider has reviewed patient's vital signs: yes Common normals: alert Other: Irritable but well nourished, well hydrated, clean and well groomed. Makes good eye contact. I observed him ambulating around his room and the ED. He repeatedly tries to show me videos that he is watching on [employer]. This does seem to be feeling the delusion. HENMT: Common normals: normocephalic, head/scalp atraumatic and TM's normal bilaterally Head and scalp: normocephalic and atraumatic Face and sinus: normal facial exam, sinuses nontender and face symmetric Tympanic membrane: TM's normal bilaterally Mouth: oral and palatal mucosa normal Throat: posterior oropharynx normal Eye: Common normals: PERRL, EOMs intact bilaterally and conjunctivae normal Conjunctiva: conjunctiva(e) normal Pupil: PERRL Neck & C-Spine: Common normals: full ROM and no lymphadenopathy Chest: Common normals: inspection of chest normal and palpation of chest normal Resp: Common normals: normal respiratory effort, no use of accessory muscles and clear to auscultation bilaterally Effort & inspection: able to speak in complete sentences Auscultation: clear to auscultation bilaterally Cardio: Common normals: regular rate, regular rhythm, S1 normal heart sound, S2 normal heart sound and no murmurs Rate: regular rate Rhythm: regular rhythm Heart sounds: S1 normal and S2 normal GI: Common normals: Normal to inspection, nondistended, normoactive bowel sounds present, soft to palpation, non-tender, no hepatosplenomegaly and no masses Palpation: soft and no hepatosplenomegaly Extremity: Common normals: normal to inspection and normal capillary refill Neuro: Common normals: CN's II-XII intact bilaterally, moves all extremities and no focal motor deficits Sensorium/orientation: alert Speech: speech normal Gait (neuro): normal gait Motor exam: strength 5/5 throughout, no pronator drift and no tremor noted Psych: Other: Mildly irritable but redirectable. Certainly has some grandiose spirit will delusions but does not seem an active threat to others or himself at this time. Able to reason, thought process is well organized. Skin: Common normals: no rashes or lesions noted Narrative: No signs of self injury or trauma. General skin exam: no rashes or lesions noted Course Course ED Course: 70-year-old male with grandiose spiritual delusions the called 911 to report that he was being held down ?my God?. There are no signs that this was a seizure, stroke, TIA or other focal neurological event. I suspect that he had a fasciculation in his leg and his vivid imagination combined with the delusions convinced him that this was an act of God. Patient certainly is going through some psychosocial stressors with the upcoming move. But he is caring for himself adequately, taking his medications, eating and drinking, he is clean, well bathe, has a plan to meet all of his basic needs. I do not love the idea of him living out of his car but technically I do not have any grounds to hold this gentleman against his will. He is motivated to get out of the hospital to care for his pet. He requests to leave. I let him know that I a.m. concerned and would like to help him meet his more basic needs including housing and discussion with the social staff worker member of our team in the morning. He says that he has no intention of waiting for that and does not feel like he needs to be hospitalized. He asked if he is free to leave and I let him know that technically do not have any grounds to hold him since he is not unsafe but I would like to try to help him. He says that he will walk over to his car and he does not need any emergency room services. Technically he is not meeting criteria for hold ability at this time and I do have to let him depart even though I would like a psychiatric evaluation. Patient leaves against medical advice but is not holdable at this time. Vital Signs Vital signs: Initial Vital Signs Temperature 97.4 F L 05/07/25 01:31 Temperature Source Temporal Artery Scan 05/07/25 01:31 Pulse Rate 88 05/07/25 01:31 Respiratory Rate 18 05/07/25 01:31 Blood Pressure 146/91 H 05/07/25 01:31 Blood Pressure Mean 109 H 05/07/25 01:31 Blood Pressure Position Sitting 05/07/25 01:31 Pulse Oximetry 93 05/07/25 01:31 Oxygen Delivery Method Room Air 05/07/25 01:31 Vital Signs Temperature 97.4 F L 05/07/25 01:31 Pulse Rate 88 05/07/25 01:31 Respiratory Rate 18 05/07/25 01:31 Blood Pressure 146/91 H 05/07/25 01:31 Pulse Oximetry 93 05/07/25 01:31 Oxygen Delivery Method Room Air 05/07/25 01:31 Temperature 97.4 F L 05/07/25 01:31 Pulse Rate 88 05/07/25 01:31 Respiratory Rate 18 05/07/25 01:31 Blood Pressure 146/91 H 05/07/25 01:31 Pulse Oximetry 93 05/07/25 01:31 Oxygen Delivery Method Room Air 05/07/25 01:31 Discharge Plan 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 Patient Disposition: Left Against Medical Advice Prescriptions: No Action metoprolol succinate 100 mg tablet extended release 24 hr 100 mg PO DAILY glipizide 5 mg tablet extended release 24hr 5 mg PO DAILY amlodipine 5 mg tablet 5 mg PO DAILY tamsulosin 0.4 mg capsule 0.8 mg PO DAILY omeprazole 20 mg capsule,delayed release(DR/EC) 20 mg PO DAILY losartan 100 mg tablet 100 mg PO DAILY rosuvastatin 40 mg tablet 40 mg PO QPM insulin glargine [Lantus Solostar U-100 Insulin] 100 unit/mL (3 mL) insulin pen 52 unit subcut QPM (DME) pen needle, diabetic [BD Liv 2nd Gen Pen Needle] 32 gauge x 5/32 needle MISCELLANEOUS Patient Comments: [NO ORIGINAL SIG] Brilinta 90 mg tablet 90 mg PO BID (DME) UltiGuard SafePack-Pen Needle 32 gauge x 5/32 needle MISCELLANEOUS DIRECTED gabapentin 300 mg capsule Patient Comments: TAKE 2 CAPSULES (600 MG) BY MOUTH AT BEDTIME. Follow Up/Referrals: Daniel Jc MD [Primary Care Provider, Family Practice] Stand Alone Forms: [facility] Info Instructions
== END 2025-05-07 02:24 | disposition left against medical advice (07) ==
PROVIDERS: Emergency Provider Family Medicine; PCP Surgery
DX: F22 Delusional disorders (principal)
CPT/HCPCS: 99282; 99283